=== PATIENT | male | born 1965 | race Caucasian/White ===

== ENCOUNTER 2020-10-10 13:37 | Emergency (ER) | payer OTHER ==
--- NOTE | 2020-10-10 14:54 | ED Physician Documentation ---
History of Present Illness - Stated complaint Stated Complaint: C+ FEVER - History obtained from History obtained from: Patient - History of Present Illness Timing: How many days ago (3) Pain level max: 0 Pain level now: 0 - Additonal information Additional information: Patient is a 55-year-old male who has not had his Covid vaccination. He states he started feeling ill 4 to 5 days ago. He states that he has a mild cough. Has had some mild body aches and a T-max of 101. Had a positive Covid test. He called the nurse advice line who told him to come here. Patient states he is diabetic and does have a history of hypertension as well. Has been taking Tylenol for fevers at home. Review of Systems Ten Systems: 10 systems reviewed and negative Constitutional: reports: Fever, Chills Ears: denies: Ear pain Nose: denies: Rhinorrhea / runny nose, Congestion Throat: denies: Sore throat Cardiac: denies: Chest pain / pressure, Palpitations Respiratory: reports: Cough (Minimal, dry). denies: Wheezing GI: denies: Nausea, Vomiting Skin: denies: Rash Musculoskeletal: denies: Neck pain, Back pain Neurologic: denies: Headache PD PAST MEDICAL HISTORY - Past Medical History Past Medical History: Yes Cardiovascular: Hypertension Endocrine/Autoimmune: Type 2 diabetes - Present Medications Home Medications: Ambulatory Orders Medication Instructions Recorded Confirmed Empagliflozin [Jardiance] 10 mg PO DAILY 10/10/20 10/10/20 Lisinopril/Hydrochlorothiazide 1 each PO DAILY 10/10/20 10/10/20 [Zestoretic 20-12.5 mg Tablet] Pioglitazone HCl [Actos] 30 mg PO DAILY 10/10/20 10/10/20 Sitagliptin Phosphate [Januvia] 25 mg PO DAILY 10/10/20 10/10/20 - Allergies Allergies/Adverse Reactions: Allergies Allergy/AdvReac Type Severity Reaction Status Date / Time Penicillins Allergy Hives Verified 10/10/20 15:01 - Living Situation Living Arrangement: reports: At home - Social History Does the pt smoke?: No Does the pt have substance abuse?: No PD ED PE NORMAL - Vitals Vital signs reviewed: Yes - General General: Alert and oriented X 3, No acute distress, Well developed/nourished - HEENT HEENT: PERRL, Ears normal, Moist mucous membranes, Pharynx benign - Neck Neck: Supple, no meningeal sign - Cardiac Cardiac: RRR, Strong equal pulses - Respiratory Respiratory: No respiratory distress, Clear bilaterally - Abdomen Abdomen: Soft, Non tender, Non distended - Derm Derm: Warm and dry - Extremities Extremities: No edema, No calf tenderness / cord - Neuro Neuro: Alert and oriented X 3 - Psych Psych: Normal mood, Normal affect Results - Vitals Vitals: Vital Signs - 24 hr 10/10/20 14:53 Temperature 37.7 C Heart Rate 100 Respiratory 20 Rate Blood Pressure 126/103 H O2 Saturation 98 Oxygen O2 Source Room air PD MEDICAL DECISION MAKING - ED course Complexity details: considered differential, d/w patient ED course: Patient is well-appearing, nontoxic. Afebrile. No hypoxia. No respiratory distress. Discussed the risks and benefits of bamlanivimab and Etesevimab treatment. Patient declines this at this time. Informed the patient that this treatment is approved within 10 days of symptom onset. We will continue supportive care and he will self quarantine at home. Patient also encouraged to have his vaccination once this illness clears. Patient counseled regarding signs and symptoms for which I believe and urgent re-evaluation would be necessary. Patient with good understanding of and agreement to plan and is comfortable going home at this time This document was made in part using voice recognition software. While efforts are made to proofread this document, sound alike and grammatical errors may occur. Departure - Departure Disposition: 01 Home, Self Care Clinical Impression: COVID-19 Condition: Good Instructions: COVID-19 [facility], COVID-19 [facility] Department Statement Follow-Up: your,doctor as needed. [Other] Comments: We did discuss treatment with Bamlanivimab and Etesevimab today, you have declined this. If you change your mind, this treatment is aurhtorized within 10 days of onset of symptoms. Please quarantine yourself at home. If you notice your oxygen saturations are staying at 90 or below, you should return for evaluation as well. Discharge Date/Time: 10/10/20 15:05
[2020-10-10 15:09] VITALS: BP 126/103
== END 2020-10-10 15:05 | disposition home or self-care (01) ==
LOC: ED 13:37
DX: U07.1 COVID-19 (principal); E11.9 Type 2 diabetes mellitus without complications; Z79.84 Long term (current) use of oral hypoglycemic drugs; I10 Essential (primary) hypertension
CPT/HCPCS: 99281; 99283

== ENCOUNTER 2020-10-13 06:32 | Inpatient (IN) | payer OTHER ==
--- NOTE | 2020-10-13 07:41 | ED Physician Documentation ---
PD HPI URI - Stated complaint Stated Complaint: C+ FEVER, SOA - Chief complaint Chief Complaint: Resp - History obtained from History obtained from: Patient - History of Present Illness Timing - onset: How many days ago (10) Timing duration: Days (10) Timing details: Gradual onset, Still present Associated symptoms: Fever, Chills, Nasal congestion, Dry cough, Dyspnea, NVD (nausea and diarrhea, with poor PO intake but no vomiting. Feels dehydrated.). No: Chest pain Contributing factors: Sick contact, Other (tested positive for COVID at [facility] last Sun and seen in ER after results. Offered Mab therapy but declined. No Rx given. Feeling worse the past few days since last visit.) Improves by: No: Rest Worsened by: Activity Similar symptoms before: Has not had sx before Recently seen: Emergency Dept (several days ago for this, and has worsened with nausea/diarrhea, general fatigue, feeling dehydrated.) Review of Systems Constitutional: denies: Fever, Chills Nose: reports: Congestion. denies: Rhinorrhea / runny nose Throat: reports: Sore throat Cardiac: denies: Chest pain / pressure, Palpitations, Pedal edema Respiratory: reports: Dyspnea, Cough GI: reports: Nausea (poor PO intake for few days due to nausea and bloating. But has had diarrhea, watery and brown. No noted blood.), Diarrhea. denies: Abdominal Pain, Vomiting : denies: Dysuria Neurologic: reports: Generalized weakness. denies: Altered mental status, Headache Endocrine: denies: Weight loss Immunocompromised: denies: Immunocompromised PD PAST MEDICAL HISTORY - Past Medical History Past Medical History: Yes Cardiovascular: Hypertension, High cholesterol Respiratory: None Neuro: None Endocrine/Autoimmune: Type 2 diabetes GI: Hemorrhoids : None HEENT: None Psych: None Musculoskeletal: Chronic back pain Derm: None - Past Surgical History Past Surgical History: Yes Ortho: Spine surgery - Present Medications Home Medications: Ambulatory Orders Medication Instructions Recorded Confirmed Empagliflozin [Jardiance] 10 mg PO DAILY 10/10/20 10/13/20 Lisinopril/Hydrochlorothiazide 1 each PO DAILY 10/10/20 10/13/20 [Zestoretic 20-12.5 mg Tablet] Pioglitazone HCl [Actos] 30 mg PO DAILY 10/10/20 10/13/20 Sitagliptin Phosphate [Januvia] 25 mg PO DAILY 10/10/20 10/13/20 - Allergies Allergies/Adverse Reactions: Allergies Allergy/AdvReac Type Severity Reaction Status Date / Time Penicillins Allergy Hives Verified 10/13/20 07:24 - Social History Does the pt smoke?: No Smoking Status: Former smoker Does the pt drink ETOH?: Yes Does the pt have substance abuse?: No - Immunizations Immunizations are current?: Yes PD ED PE NORMAL - Vitals Vital signs reviewed: Yes - General General: Alert and oriented X 3, Well developed/nourished - HEENT HEENT: Moist mucous membranes, Pharynx benign - Neck Neck: Supple, no meningeal sign, No adenopathy, No JVD - Cardiac Cardiac: RRR, No murmur - Respiratory Respiratory: No respiratory distress, Other (mild coarse sounds bilaterally) - Abdomen Abdomen: Soft, Non tender - Back Back: No CVA TTP - Derm Derm: Normal color, Warm and dry - Extremities Extremities: No tenderness to palpate, Normal ROM s pain - Neuro Neuro: Alert and oriented X 3, No motor deficit, Normal speech Results - Vitals Vitals: Vital Signs - 24 hr 10/13/20 10/13/20 10/13/20 07:25 07:34 08:56 Temperature 37.8 C Heart Rate 95 99 75 Respiratory 22 22 22 Rate Blood Pressure 135/94 H 146/91 H O2 Saturation 93 94 10/13/20 10/13/20 10/13/20 09:30 10:07 10:42 Temperature Heart Rate 87 95 Respiratory 12 21 Rate Blood Pressure 151/81 H 116/98 H O2 Saturation 92 89 L 86 L Oxygen O2 Source Room air - Labs Labs: Laboratory Tests 10/13/20 10/13/20 10/13/20 09:05 09:05 09:05 WBC 5.9 RBC 5.67 Hgb 16.7 Hct 48.8 MCV 86.1 MCH 29.5 MCHC 34.2 RDW 12.9 Plt Count 115 L MPV 12.0 H Neut # (Auto) 4.1 Lymph # (Auto) 1.2 L [place] # (Auto) 0.4 Eos # (Auto) 0.1 Baso # (Auto) 0.0 Absolute Nucleated RBC 0.00 Nucleated RBC % 0.0 Sodium 129 L Potassium 3.8 Chloride 92 L Carbon Dioxide 27 Anion Gap 10.0 BUN 19 Creatinine 0.9 Estimated GFR (MDRD) 88 L Glucose 189 H Lactic Acid 1.5 Calcium 8.8 Magnesium 2.2 Total Bilirubin 1.3 H AST 68 H ALT 50 Alkaline Phosphatase 40 L Total Protein 7.5 Albumin 4.0 Globulin 3.5 Albumin/Globulin Ratio 1.1 Lipase 29 Serum Ketones NEGATIVE - Rads (name of study) chest xray Radiology: Prelim report reviewed (interstitial infiltrates c/w viral pneumonia), See rad report PD MEDICAL DECISION MAKING - ED course Complexity details: reviewed results (Chest x-ray shows interstitial infiltrates consistent with viral pneumonia. His oxygenation is low between 86 and 92% over time while here in the ER. He is placed on nasal cannula.), re-evaluated patient (He states he is feeling less nauseous and has an improved general wellness with IV fluids and antiemetic. However he still feels short of breath and oxygenation is ranging between 86 and 92% on room air.), considered differential (He tested positive for Covid and has had increasing cough and trouble breathing but also nausea, poor intake, diarrhea and general fatigue. He does feel dehydrated.), d/w patient, d/w informatics consultant (Hospitalist) Departure - Departure Disposition: 66 [facility] DC/Xfer Clinical Impression: Pneumonia due to COVID-19 virus, Diabetes, Dehydration, Hyponatremia, Hypoxia Condition: Stable Record reviewed to determine appropriate education?: Yes Discharge Date/Time: 10/13/20 12:20
[2020-10-13] MEDS ORDERED: SODIUM CHLORIDE 0.9% 1,000 ML IV STA (08:17)
[2020-10-13] MEDS ORDERED: ALBUTEROL 1 PUFF INH STA (08:17)
[2020-10-13] MEDS ORDERED: KETOROLAC 15 MG/ML VIAL IVP STA (08:18)
[2020-10-13] MEDS ORDERED: DIPHENOX/ATROPINE 2.5/0.025 MG TABLET PO STA (08:18)
[2020-10-13] MEDS ORDERED: ONDANSETRON 4 MG/2 ML VIAL IVP STA (08:18)
--- NOTE | 2020-10-13 08:38 | XRAY Report ---
PROCEDURE: Chest 1 View X-Ray INDICATIONS: chest pain TECHNIQUE: One view of the chest was acquired. COMPARISON: None FINDINGS: Surgical changes and devices: None. Lungs and pleura: No pleural effusions or pneumothorax. Patchy bilateral airspace densities, possibl y representing viral pneumonia. Mediastinum: Mediastinal contours appear normal. Heart size is normal. Bones and chest wall: No suspicious bony lesions. Overlying soft tissues appear unremarkable. IMPRESSION: Findings are consistent with bilateral viral pneumonia. Reviewed by: Derrick Bowser MD on 10/13/2020 8:37 AM PDT Approved by: Derrick Bowser MD on 10/13/2020 8:37 AM PDT Station ID: [id number]
[2020-10-13 09:27] LABS: BASOPHILS % (AUTO) 0.2 %; EOSINOPHILS # (AUTO) 0.1 10^3/uL (0.0-0.7); EOSINOPHILS % (AUTO) 2.2 %; HCT - HEMATOCRIT 48.8 % (42.0-52.0); HGB - HEMOGLOBIN 16.7 g/dL (14.0-18.0); LYMPHOCYTES # (AUTO) 1.2 10^3/uL (1.5-3.5); LYMPHOCYTES % (AUTO) 19.8 %; MEAN CORPUSCULAR HEMOGLOBIN 29.5 pg (27.0-31.0); MEAN CORPUSCULAR HGB CONC 34.2 g/dL (32.0-36.0); MEAN CORPUSCULAR VOLUME 86.1 fL (80.0-94.0); MONOCYTES # (AUTO) 0.4 10^3/uL (0.0-1.0); MONOCYTES % (AUTO) 7.4 %; NEUTROPHILS # (AUTO) 4.1 10^3/uL (1.5-6.6); NEUTROPHILS % (AUTO) 69.4 %; PLT - PLATELET COUNT 115 10^3/uL (130-450); RED BLOOD COUNT 5.67 10^6/uL (4.70-6.10); RED CELL DISTRIBUTION WIDTH 12.9 % (12.0-15.0); WHITE BLOOD COUNT 5.9 x10^3/uL (4.8-10.8)
[2020-10-13 09:35] LABS: ALBUMIN/GLOBULIN RATIO 1.1 (1.0-2.2); ALKALINE PHOSPHATASE 40 IU/L (42-121); ALT ALANINE AMINOTRANSFERASE 50 IU/L (10-60); AST ASPARTATE AMINOTRANSFERASE 68 IU/L (10-42); BILIRUBIN,TOTAL 1.3 mg/dL (0.2-1.0); BUN - BLOOD UREA NITROGEN 19 mg/dL (6-20); CALCIUM 8.8 mg/dL (8.5-10.3); CARBON DIOXIDE - CO2 27 mmol/L (21-32); CHLORIDE 92 mmol/L (101-111); CREATININE 0.9 mg/dL (0.6-1.2); GFR - MDRD 88 (>89); GLUCOSE 189 mg/dL (70-100); LIPASE 29 U/L (22-51); MAGNESIUM 2.2 mg/dL (1.7-2.8); POTASSIUM 3.8 mmol/L (3.5-5.0); SODIUM 129 mmol/L (135-145); TOTAL PROTEIN 7.5 g/dL (6.7-8.2)
[2020-10-13 09:41] LABS: KETONES, SERUM (ACETEST) NEGATIVE (NEGATIVE)
[2020-10-13] MEDS ORDERED: ONDANSETRON ODT 4 MG TABLET TL PRN (10:46)
[2020-10-13] MEDS ORDERED: ACETAMINOPHEN 325 MG TABLET PO PRN (10:46)
[2020-10-13] MEDS ORDERED: oxyCODONE 5 MG TABLET PO PRN (10:46)
[2020-10-13] MEDS ORDERED: NACL IVP SCH (11:45)
[2020-10-13] MEDS ORDERED: [UNRECOGNIZED DRUG - OTHER] IVP SCH (11:45)
[2020-10-13] MEDS ORDERED: DEXTROSE IVP SCH (11:45)
[2020-10-13 12:00] LABS: CORONAVIRUS 229E-RESP PCR NOT DETECTED; CORONAVIRUS HKU1-RESP PCR NOT DETECTED; CORONAVIRUS NL63-RESP PCR NOT DETECTED; CORONAVIRUS OC43-RESP PCR NOT DETECTED
[2020-10-13 12:06] LABS: B. PARAPERTUSSIS- RESP PCR PAN NOT DETECTED; B. PERTUSSIS- RESP PCR PANEL NOT DETECTED; C. PNEUMONIAE- RESP PCR PANEL NOT DETECTED; HUMAN METAPNEUMOVIRUS NOT DETECTED; INFLUENZA A- RESP PCR PANEL NOT DETECTED; INFLUENZA B - RESP PCR PANEL NOT DETECTED; M. PNEUMONIAE- RESP PCR PANEL NOT DETECTED; PARAINFLUENZA VIRUS 1 NOT DETECTED; PARAINFLUENZA VIRUS 2 NOT DETECTED; PARAINFLUENZA VIRUS 3 NOT DETECTED; PARAINFLUENZA VIRUS 4 NOT DETECTED; RHINOVIRUS/ENTEROVIRUS NOT DETECTED; RSV- RESP PCR PANEL NOT DETECTED; SARS-CoV-2 -RESP PCR PANEL DETECTED
[2020-10-13] MEDS ORDERED: REMDESIVIR 100MG VIAL 200 MG in SODIUM CHLORIDE 0.9% 250 ML IV ONE (14:00)
[2020-10-13] MEDS: DEXAMETHASONE 4 MG/ML VIAL IVP SCH (14:59)
[2020-10-13] MEDS: ENOXAPARIN 40 MG/0.4 ML SYRINGE SUBQ SCH (15:00)
[2020-10-13] MEDS: INSULIN ASPART 300 UNIT/3 ML PEN SUBQ SCH ×3 (15:09→21:50)
--- NOTE | 2020-10-13 15:11 | HISTORY & PHYSICAL EXAMINATION ---
Chief Complaint - Chief Complaint Chief Complaint: Cough, shortness of breath History of Present Illness - Admitted From Admitted From:: home - History Obtained From History obtained from: patient - History of Present Illness HPI Comment/Other: Patient began feeling ill ~8-10 days ago, decided to go to [facility] to get tested for COVID on Sunday after going into work on Sunday. Results were positive for COVID-19. He is not aware of any sick contacts. Patient began resting at home but decided to come to the ED when dyspnea became more severe. He has been experiencing diarrhea, chills, weakness, coughing, dyspnea, forgetfulness, and body aches. He lives alone and was concerned that he would not be able to care for himself, especially if his symptoms progressed. He has not received the COVID vaccine. He was initially offered MAB treatment upon first going to the ED (where he again tested positive for COVID-19), but declined. He no longer qualifies for MAB therapy, but has agreed to start standard treatment of dexamethasone and Remdesivir. When asked whether he would agree to intubation in the event of acute respiratory failure, the patient stated that he "has heard bad things about it" and was uncertain of his personal wishes in such an event. It was relayed to the patient that unless he clearly stated that he did not want such an intervention, that he would be intubated in the event of respiratory failure and emergency. Encouraged patient that he is welcome to revisit this topic with us at any point in the future if he has questions or if he changes his mind. Reiterated that he will be a full code at this time, to which he expressed understanding. History - Past Medical History Cardiovascular: reports: Hypertension, High cholesterol. denies: Peripheral Vascular Disease, Deep vein thrombosis, Pulmonary embolism, [place], Atrial flutter, Atrial fibrillation, Murmur, Arrhythmia, Valve disorder Respiratory: reports: None. denies: COPD, Cystic fibrosis, Emphysema, Sleep apnea Neuro: denies: Alzhiemer's, Dementia, Cerebral palsy, CVA, Peripheral neuropathy (denies) Endocrine/Autoimmune: reports: Type 2 diabetes. denies: Type 1 diabetes, HyPERthyroidism, Systemic lupus erythematosus GI: reports: Hemorrhoids. denies: GERD, Esophageal varices, GI bleed, Ulcers, C.difficile, Chronic diarrhea, Chronic constipation, Pancreatitis, Hepatitis, Cirrhosis, Ulcerative colitis, Crohn's disease : reports: None, Nocturia (once or twice depending on fluids and glucose), Other (decreased stream). denies: Dialysis, Retention, Chronic bladder infection, Indwelling catheter HEENT: reports: None, Chronic vision loss (wears glasses). denies: Chronic sinusitis, Macular degeneration, Chronic hearing loss Psych: reports: None. denies: Depression, Bipolar disorder, Schizophrenia, ADD/ADHD, Post traumatic stress disorder, Claustrophobia, Obsessive compulsive disorder, Eating disorder Musculoskeletal: reports: Chronic back pain. denies: Fibromyalgia, Rheumatoid arthritis, Osteoporosis, Paraplegia, Quadriplegia, Hemiplegia, Osteopenia Derm: reports: None. denies: Other drug resistant infections, Herpes zoster, Psoriasis, Rosacea MRSA Hx?: No - Past Surgical History Ortho: reports: Spine surgery - Family & Social History Family History: Mother: Alive and Well, Father: (dad, 71 heart disease), Sister: Alive and Well, Brother: Alive and Well Family History Comment/Other: estranged from sister, brother also with HTN, DM2. Estranged mother age 76 but estranged. 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 - Substance History Use: Uses substance without health or social issues: NONE Abuse: Recurrent use of substance despite neg consequences: NONE Dependence: Experiences withdrawal or developed tolerances: NONE - POLST Patient has POLST: No POLST Status: Full Code Meds/Allgy - Home Medications Home Medications: Ambulatory Orders Medication Instructions Recorded Confirmed Atorvastatin [Lipitor] 20 mg PO QPM 10/13/20 10/13/20 Empagliflozin [Jardiance] 25 mg PO DAILY 10/13/20 10/13/20 Pioglitazone [Actos] 15 mg PO DAILY 10/13/20 10/13/20 Sitagliptin Phos/Metformin HCl 1 cap PO BID 10/13/20 10/13/20 [Janumet Xr 50-1,000 mg Tablet] hydroCHLOROthiazide [Hydrodiuril] 12.5 mg PO DAILY 10/13/20 10/13/20 lisinopriL [Lisinopril] 40 mg PO DAILY 10/13/20 10/13/20 - Allergies Allergies/Adverse Reactions: Allergies Allergy/AdvReac Type Severity Reaction Status Date / Time Penicillins Allergy Hives Verified 10/13/20 07:24 Review of Systems - Constitutional Constitutional: reports: Fatigue, Fever, Chills, Malaise, Weakness, Poor appetite. denies: Weight gain, Weight loss - Eyes Eyes: reports: Vision loss, Corrective lenses. denies: Pain, Irritation, Amaurosis, Blurred vision, Spots in vision, Field loss, Dipolpia - Ears, Nose & Throat Ears, Nose & Throat: denies: Ear pain, Hearing loss, Hearing aids, Tinnitus, Nosebleeds, Nasal obstruction, Nasal congestion, Postnasal drainage, Dentures, Sore throat, Hoarseness, Mouth lesions, Bleeding gums, Dental decay, Dental pain - Cardiovascular Cariovascular: reports: Edema. denies: Irregular heart rate, Palpitations, Chest pain, Syncope - Respiratory Respiratory: reports: Cough, Sputum production, Wheezing, SOB at rest, SOB with exertion, Pleuritic pain. denies: Hemoptysis, Orthopnea, Stridor - Gastrointestinal Gastrointestinal: reports: Diarrhea, Nausea, Poor appetite. denies: Abdominal pain, Abdominal distention, Constipation, Rectal bleeding, Black stools, Bloody stools, Bile emesis, Daryl blood emesis - Genitourinary Genitourinary: reports: Frequency, Nocturia. denies: Dysuria, Incontinence, Flank pain, Urethral discharge - Musculoskeletal Musculoskeletal: reports: Back pain, Muscle aches. denies: Muscle pain, Muscle weakness, Gout - Integumentary Integumentary: denies: Pruritis, Lesions, Dryness, Acne, Pigment changes - Neurological Neurological: denies: Focal weakness, Numbness, Pre-existing deficit, Abnormal gait, Seizures, Incoordination, Slurred speech - Psychiatric Psychiatric: denies: Depression, Anxiety, Suicidal, Delusions, Hallucinations - Endocrine Endocrine: denies: Polyuria, Polydypsia, Polyphagia - Hematologic/Lymphatic Hematologic/Lymphatic: denies: Anemia, Bruising, Petechiae, Bleeding tendencies Prior Level of Functionality: Prior to hospitalization patient was completely independent Exam - Vital Signs Reviewed Vital Signs: Yes Vital Signs: Vital Signs x48h Temp Pulse Resp BP Pulse Ox 10/13/20 11:30 88 16 139/86 H 95 10/13/20 11:00 86 17 142/81 H 94 10/13/20 10:46 37.8 C 88 16 95 10/13/20 10:42 86 L 10/13/20 10:07 95 21 116/98 H 89 L 10/13/20 09:30 87 12 151/81 H 92 10/13/20 08:56 75 22 10/13/20 07:34 99 22 146/91 H 94 10/13/20 07:25 37.8 C 95 22 135/94 H 93 - Physical Exam General Appearance: positive: Alert, Mild distress (rigors and shakes when we walked into room, very cold) Eyes Bilateral: positive: Normal inspection, PERRL ENT: positive: ENT inspection nml Neck: positive: Nml inspection, Thyroid nml, No JVD, Trachea midline Respiratory: positive: Rhonchi (bilateral), Other (dyspneic with walking to bathroom and back, dry cough) Cardiovascular: positive: Regular rate & rhythm, No murmur, No gallop Peripheral Pulses: positive: 2+ Abdomen: positive: Non-tender, No organomegaly, Nml bowel sounds Back: positive: Nml inspection Skin: positive: Color nml, No rash, Warm, Dry Extremities: positive: Pedal edema (trace) Neurologic/Psychiatric: positive: Oriented x3, Mood/affect nml Conclusion/Plan - Problem List (1) Pneumonia due to COVID-19 virus Conclusion/Plan: Positive COVID-19 swab in ED. CXR showing viral pneumonia. Patient was offered MAB while in ED, but he intitially refused and is no longer a candidate to receive despite asking for it today. Instead, he was started on Remdesivir (day 1 of 5) and dexamethasone (day 1 of 10) today and understands duration and rationale for both of these. He continues to experience rigors/chills, body aches, and reports occasional difficult findings words, which he associates with this infection. Discussed with patient the importance of receiving the COVID vaccine, even since he has now been infected. (2) Acute respiratory failure with hypoxia Conclusion/Plan: Upon admission oxygen saturation was in the mid 80's on room air. He has since been satting in the 90's on 2L of oxygen via nasal cannula. He continues to experience moderate dyspnea, but does not appear to require more intensive respiratory intervention at this time. Continue with management of COVID pneumonia and monitor for any new worsening hypoxia or increased respiratory distress. (3) Diabetes Conclusion/Plan: Started on insulin regimen and accuchecks while inpatient, especially now that he is starting dexamethasone. Qualifiers: Diabetes mellitus type: type 2 Diabetes mellitus shelter insulin use: without shelter use Diabetes mellitus complication status: without complication Qualified Code(s): E11.9 - Type 2 diabetes mellitus without complications (4) Hypertension Conclusion/Plan: Given current BP readings, will hold home antihypertensives for now. Should systolic BP readings sustain >150, will consider resuming home medications at that time. - Lab Results Lab results reviewed: Yes Fish Bones: 10/13/20 09:05 10/13/20 09:05 - Diagnostic Imaging Results Diagnostic Imaging Results: positive: Final report reviewed Core Measures - Anticipated LOS I expect patient to be DC'd or transferred within 96 hours.: Yes - DVT/VTE - Prophylaxis VTE/DVT Device ordered at admit?: Yes
[2020-10-13] MEDS: LACTATED RINGERS 1,000 ML IV SCH ×2 (16:50→21:51)
[2020-10-13] MEDS: SODIUM CHLORIDE FLUSH 0.9% 10 ML SYRINGE IVP SCH (16:50)
--- NOTE | 2020-10-13 17:51 | PHARMACY PROGRESS NOTE ---
- Best Possible Medication History Admit Date and Time: 10/13/20 1046 Processed by: Pharmacy Medication History completed: Yes Patient Interview: Completed Secondary Source(s): Physician records, Pharmacy records, Insurance records (PATIENT ABLE TO CONFIRM HOME MEDICATIONS ) As the person ultimately responsible for medication therapy, providers are able to order a medication from an existing home medication list in [facility] via the "Reconcile Routine" prior to Confirmation of that medication by community support associate. Such practice is discouraged except when the physician, in their clinical judgment, deems that a medical need exists for a medication without regard to previous use.
[2020-10-14] MEDS: SODIUM CHLORIDE FLUSH 0.9% 10 ML SYRINGE IVP SCH ×3 (00:27→17:19)
[2020-10-14] MEDS: LACTATED RINGERS 1,000 ML IV SCH ×2 (02:29→13:10)
[2020-10-14 05:22] LABS: BASOPHILS % (AUTO) 0.4 %; HCT - HEMATOCRIT 51.9 % (42.0-52.0); HGB - HEMOGLOBIN 17.1 g/dL (14.0-18.0); LYMPHOCYTES # (AUTO) 1.7 10^3/uL (1.5-3.5); LYMPHOCYTES % (AUTO) 24.3 %; MEAN CORPUSCULAR HEMOGLOBIN 29.5 pg (27.0-31.0); MEAN CORPUSCULAR HGB CONC 32.9 g/dL (32.0-36.0); MEAN CORPUSCULAR VOLUME 89.6 fL (80.0-94.0); MEAN PLATELET VOLUME 11.4 fL (7.4-11.4); MONOCYTES # (AUTO) 0.5 10^3/uL (0.0-1.0); MONOCYTES % (AUTO) 7.7 %; NEUTROPHILS # (AUTO) 4.7 10^3/uL (1.5-6.6); NEUTROPHILS % (AUTO) 66.5 %; RED BLOOD COUNT 5.79 10^6/uL (4.70-6.10); RED CELL DISTRIBUTION WIDTH 13.3 % (12.0-15.0)
[2020-10-14 05:28] LABS: PLT - PLATELET COUNT 135 10^3/uL (130-450)
[2020-10-14 05:45] LABS: CALCIUM 8.7 mg/dL (8.5-10.3); CREATININE 0.8 mg/dL (0.6-1.2); POTASSIUM 4.4 mmol/L (3.5-5.0)
[2020-10-14] MEDS: DEXAMETHASONE 4 MG/ML VIAL IVP SCH (09:48)
[2020-10-14] MEDS: ENOXAPARIN 40 MG/0.4 ML SYRINGE SUBQ SCH (09:48)
[2020-10-14] MEDS: REMDESIVIR 100MG VIAL 100 MG in SODIUM CHLORIDE 0.9% 100ML 100 ML IV SCH (09:48)
[2020-10-14] MEDS: INSULIN GLARGINE 300 UNIT/3 ML PEN SUBQ SCH (09:52)
[2020-10-14 12:29] LABS: ESTIMATED AVERAGE GLUCOSE 160 mg/dL (70-100); HEMOGLOBIN A1c% 7.2 % (4.27-6.07)
[2020-10-14] MEDS: INSULIN ASPART 300 UNIT/3 ML PEN SUBQ SCH ×4 (13:00→21:33)
--- NOTE | 2020-10-14 19:09 | PROVIDER PROGRESS NOTE ---
Subjective - Prog Note Date Prog Note Date: 10/14/20 Prog Note Time: 19:06 - Subjective Pt reports feeling: Improved (Pt feeling slightly better than yesterday with less overall malaise.) Objective - Vital Signs/Intake & Output Vital Signs: Vital Signs x48h Temp Pulse Resp BP Pulse Ox 10/14/20 16:00 37.7 C 81 22 119/71 94 Intake & Output: Intake & Output 10/11/20 10/12/20 10/13/20 10/14/20 23:59 23:59 23:59 23:59 Intake Total 2356.66 3128.333 Balance [id number] 3128.333 - Objective General Appearance: positive: No acute distress, Alert Eyes Bilateral: positive: Normal inspection ENT: positive: ENT inspection nml Neck: positive: Nml inspection, No JVD, Trachea midline Respiratory: positive: Wheezes, Rhonchi (no change from yesterday) Cardiovascular: positive: Regular rate & rhythm, No murmur, No gallop Abdomen: positive: Non-tender, No organomegaly, Nml bowel sounds, No distention Back: positive: Nml inspection Skin: positive: Color nml, No rash, Warm, Dry Extremities: positive: Non-tender, Full ROM, Nml appearance Neurologic/Psychiatric: positive: Oriented x3, Mood/affect nml - Lab Results Fish Bones: 10/14/20 04:40 10/14/20 04:40 Other Labs: Lab Results x24hrs 10/14/20 10/14/20 10/14/20 Range/Units 16:20 12:24 08:09 WBC (4.8-10.8) x10^3/uL RBC (4.70-6.10) 10^6/uL Hgb (14.0-18.0) g/dL Hct (42.0-52.0) % MCV (80.0-94.0) fL MCH (27.0-31.0) pg MCHC (32.0-36.0) g/dL RDW (12.0-15.0) % Plt Count (130-450) 10^3/uL MPV (7.4-11.4) fL Neut # (Auto) (1.5-6.6) 10^3/uL Lymph # (Auto) (1.5-3.5) 10^3/uL [place] # (Auto) (0.0-1.0) 10^3/uL Eos # (Auto) (0.0-0.7) 10^3/uL Baso # (Auto) (0.0-0.1) 10^3/uL Absolute Nucleated RBC x10^3/uL Nucleated RBC % /100WBC Sodium (135-145) mmol/L Potassium (3.5-5.0) mmol/L Chloride (101-111) mmol/L Carbon Dioxide (21-32) mmol/L Anion Gap (6-13) BUN (6-20) mg/dL Creatinine (0.6-1.2) mg/dL Estimated GFR (MDRD) (>89) Glucose (70-100) mg/dL POC Whole Bld Glucose 258 H 190 H 157 H (70 - 100) mg/dL Estimat Average Glucose (70-100) mg/dL Hemoglobin A1c % (4.27-6.07) % Calcium (8.5-10.3) mg/dL Lactate Dehydrogenase (91-225) IU/L C-Reactive Protein (0-1.0) mg/dL 10/14/20 10/14/20 10/14/20 Range/Units 04:40 04:40 04:40 WBC 7.0 (4.8-10.8) x10^3/uL RBC 5.79 (4.70-6.10) 10^6/uL Hgb 17.1 (14.0-18.0) g/dL Hct 51.9 (42.0-52.0) % MCV 89.6 (80.0-94.0) fL MCH 29.5 (27.0-31.0) pg MCHC 32.9 (32.0-36.0) g/dL RDW 13.3 (12.0-15.0) % Plt Count 135 (130-450) 10^3/uL MPV 11.4 (7.4-11.4) fL Neut # (Auto) 4.7 (1.5-6.6) 10^3/uL Lymph # (Auto) 1.7 (1.5-3.5) 10^3/uL [place] # (Auto) 0.5 (0.0-1.0) 10^3/uL Eos # (Auto) 0.0 (0.0-0.7) 10^3/uL Baso # (Auto) 0.0 (0.0-0.1) 10^3/uL Absolute Nucleated RBC 0.00 x10^3/uL Nucleated RBC % 0.0 /100WBC Sodium 135 (135-145) mmol/L Potassium 4.4 (3.5-5.0) mmol/L Chloride 95 L (101-111) mmol/L Carbon Dioxide 28 (21-32) mmol/L Anion Gap 12.0 (6-13) BUN 16 (6-20) mg/dL Creatinine 0.8 (0.6-1.2) mg/dL Estimated GFR (MDRD) 101 (>89) Glucose 183 H (70-100) mg/dL POC Whole Bld Glucose (70 - 100) mg/dL Estimat Average Glucose (70-100) mg/dL Hemoglobin A1c % (4.27-6.07) % Calcium 8.7 (8.5-10.3) mg/dL Lactate Dehydrogenase 640 H (91-225) IU/L C-Reactive Protein 13.0 H (0-1.0) mg/dL 10/14/20 10/13/20 Range/Units 04:40 20:18 WBC (4.8-10.8) x10^3/uL RBC (4.70-6.10) 10^6/uL Hgb (14.0-18.0) g/dL Hct (42.0-52.0) % MCV (80.0-94.0) fL MCH (27.0-31.0) pg MCHC (32.0-36.0) g/dL RDW (12.0-15.0) % Plt Count (130-450) 10^3/uL MPV (7.4-11.4) fL Neut # (Auto) (1.5-6.6) 10^3/uL Lymph # (Auto) (1.5-3.5) 10^3/uL [place] # (Auto) (0.0-1.0) 10^3/uL Eos # (Auto) (0.0-0.7) 10^3/uL Baso # (Auto) (0.0-0.1) 10^3/uL Absolute Nucleated RBC x10^3/uL Nucleated RBC % /100WBC Sodium (135-145) mmol/L Potassium (3.5-5.0) mmol/L Chloride (101-111) mmol/L Carbon Dioxide (21-32) mmol/L Anion Gap (6-13) BUN (6-20) mg/dL Creatinine (0.6-1.2) mg/dL Estimated GFR (MDRD) (>89) Glucose (70-100) mg/dL POC Whole Bld Glucose 290 H (70 - 100) mg/dL Estimat Average Glucose 160 H (70-100) mg/dL Hemoglobin A1c % 7.2 H (4.27-6.07) % Calcium (8.5-10.3) mg/dL Lactate Dehydrogenase (91-225) IU/L C-Reactive Protein (0-1.0) mg/dL - Diagnostic Imaging Diagnostic Imaging Results: positive: Final report reviewed Assessment/Plan - Problem List (1) Pneumonia due to COVID-19 virus Impression: Conclusion/Plan: CXR showing viral pneumonia. Patient was offered MAB while in ED, but he intitially refused. He was started on Remdesivir (day 2 of 5 today) and dexamethasone (day 2 of 10) and understands duration and rationale for both of these. Rigors/chills, body aches improved since yesterday. Discussed with patient the importance of receiving the COVID vaccine, even since he has now been infected. He states he plans to get vaccinated 3 weeks following discharge from the hospital. (2) Acute respiratory failure with hypoxia Conclusion/Plan: Upon admission oxygen saturation was in the mid 80's on room air. He has since been satting in the 90's on 2L of oxygen via nasal cannula. He continues to experience moderate dyspnea off and on, and was started on high flow NC this morning. After providing education about proning, he reports feeling relief of dyspnea while in prone position today and states he even took a nap while proning for an hour. Continue with management of COVID pneumonia and monitor for any new worsening hypoxia or increased respiratory distress. (3) Diabetes Conclusion/Plan: Started on insulin regimen and accuchecks while inpatient. Serum glucose has b een quite elevated today. Will increase Lantus tonight and reassess tomorrow. 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 Should systolic BP readings sustain >150, will consider resuming home medications at that time.
[2020-10-14] MEDS ORDERED: INSULIN GLARGINE 300 UNIT/3 ML PEN SUBQ SCH (21:00)
[2020-10-14] MEDS: guaiFENesin 600 MG TABLET PO SCH (21:30)
[2020-10-15] MEDS: LACTATED RINGERS 1,000 ML IV SCH ×3 (02:02→22:38)
[2020-10-15] MEDS: SODIUM CHLORIDE FLUSH 0.9% 10 ML SYRINGE IVP SCH ×3 (02:03→19:03)
[2020-10-15 05:37] LABS: BASOPHILS % (AUTO) 0.1 %; RED CELL DISTRIBUTION WIDTH 13.2 % (12.0-15.0)
[2020-10-15 05:46] LABS: HCT - HEMATOCRIT 47.9 % (42.0-52.0); HGB - HEMOGLOBIN 16.1 g/dL (14.0-18.0); LYMPHOCYTES # (AUTO) 1.5 10^3/uL (1.5-3.5); LYMPHOCYTES % (AUTO) 15.6 %; MEAN CORPUSCULAR HEMOGLOBIN 30.3 pg (27.0-31.0); MEAN CORPUSCULAR HGB CONC 33.6 g/dL (32.0-36.0); MEAN PLATELET VOLUME 11.4 fL (7.4-11.4); MONOCYTES # (AUTO) 0.7 10^3/uL (0.0-1.0); MONOCYTES % (AUTO) 7.1 %; NEUTROPHILS # (AUTO) 7.6 10^3/uL (1.5-6.6); NEUTROPHILS % (AUTO) 76.3 %; PLT - PLATELET COUNT 169 10^3/uL (130-450); RED BLOOD COUNT 5.32 10^6/uL (4.70-6.10); WHITE BLOOD COUNT 9.9 x10^3/uL (4.8-10.8)
[2020-10-15 06:00] LABS: CALCIUM 8.7 mg/dL (8.5-10.3); CREATININE 0.7 mg/dL (0.6-1.2); CRP - C-REACTIVE PROTEIN 8.3 mg/dL (0-1.0); POTASSIUM 4.5 mmol/L (3.5-5.0)
[2020-10-15] MEDS: ENOXAPARIN 40 MG/0.4 ML SYRINGE SUBQ SCH (09:06)
[2020-10-15] MEDS: guaiFENesin 600 MG TABLET PO SCH ×2 (09:07→21:18)
[2020-10-15] MEDS: DEXAMETHASONE 4 MG/ML VIAL IVP SCH (09:07)
[2020-10-15] MEDS: SODIUM CHLORIDE FLUSH 0.9% 10 ML SYRINGE IVP PRN (09:10)
[2020-10-15] MEDS: INSULIN ASPART 300 UNIT/3 ML PEN SUBQ SCH ×4 (09:11→21:18)
[2020-10-15] MEDS: INSULIN GLARGINE 300 UNIT/3 ML PEN SUBQ SCH ×2 (09:12→21:21)
[2020-10-15] MEDS: REMDESIVIR 100MG VIAL 100 MG in SODIUM CHLORIDE 0.9% 100ML 100 ML IV SCH (10:40)
--- NOTE | 2020-10-15 11:41 | PROVIDER PROGRESS NOTE ---
Subjective - Prog Note Date Prog Note Date: 10/15/20 Prog Note Time: 11:38 - Subjective Pt reports feeling: Worse (Overnight patient states he experienced worsening respiratory distress, coughing, intercostal pain, and sputum production. He is feeling exhausted and somewhat defeated this morning.) Objective - Vital Signs/Intake & Output Vital Signs: Vital Signs x48h Temp Pulse Resp BP Pulse Ox 10/15/20 10:57 37.2 C 81 32 H 96 10/15/20 08:59 90 133/74 H 93 10/15/20 08:00 37.9 C 81 27 H 148/121 H 93 Intake & Output: Intake & Output 10/12/20 10/13/20 10/14/20 10/15/20 23:59 23:59 23:59 23:59 Intake Total 2356.667 4728.333 1863.333 Balance 2356.667 4728.333 1863.333 - Objective General Appearance: positive: Alert, Mild distress Eyes Bilateral: positive: Other (Right eye with mild irritation and increased tear production) ENT: positive: ENT inspection nml Neck: positive: Nml inspection Respiratory: positive: Wheezes, Rhonchi (slightly more rhoncorous than yesterday; very congested cough and lung doss) Cardiovascular: positive: Regular rate & rhythm, No murmur, No gallop Abdomen: positive: Non-tender, No organomegaly, Nml bowel sounds, No distention Back: positive: Nml inspection Skin: positive: Color nml, No rash, Warm, Dry Extremities: positive: Non-tender, Full ROM, Nml appearance Neurologic/Psychiatric: positive: Oriented x3, Mood/affect nml - Lab Results Fish Bones: 10/15/20 05:06 10/15/20 05:06 Other Labs: Lab Results x24hrs 10/15/20 10/15/20 10/15/20 Range/Units 11:31 08:15 05:06 WBC (4.8-10.8) x10^3/uL RBC (4.70-6.10) 10^6/uL Hgb (14.0-18.0) g/dL Hct (42.0-52.0) % MCV (80.0-94.0) fL MCH (27.0-31.0) pg MCHC (32.0-36.0) g/dL RDW (12.0-15.0) % Plt Count (130-450) 10^3/uL MPV (7.4-11.4) fL Neut # (Auto) (1.5-6.6) 10^3/uL Lymph # (Auto) (1.5-3.5) 10^3/uL [place] # (Auto) (0.0-1.0) 10^3/uL Eos # (Auto) (0.0-0.7) 10^3/uL Baso # (Auto) (0.0-0.1) 10^3/uL Absolute Nucleated RBC x10^3/uL Nucleated RBC % /100WBC Sodium (135-145) mmol/L Potassium (3.5-5.0) mmol/L Chloride (101-111) mmol/L Carbon Dioxide (21-32) mmol/L Anion Gap (6-13) BUN (6-20) mg/dL Creatinine (0.6-1.2) mg/dL Estimated GFR (MDRD) (>89) Glucose (70-100) mg/dL POC Whole Bld Glucose 260 H 170 H (70 - 100) mg/dL Estimat Average Glucose (70-100) mg/dL Hemoglobin A1c % (4.27-6.07) % Calcium (8.5-10.3) mg/dL Lactate Dehydrogenase 645 H (91-225) IU/L C-Reactive Protein (0-1.0) mg/dL 10/15/20 10/15/20 10/14/20 Range/Units 05:06 05:06 19:54 WBC 9.9 (4.8-10.8) x10^3/uL RBC 5.32 (4.70-6.10) 10^6/uL Hgb 16.1 (14.0-18.0) g/dL Hct 47.9 (42.0-52.0) % MCV 90.0 (80.0-94.0) fL MCH 30.3 (27.0-31.0) pg MCHC 33.6 (32.0-36.0) g/dL RDW 13.2 (12.0-15.0) % Plt Count 169 (130-450) 10^3/uL MPV 11.4 (7.4-11.4) fL Neut # (Auto) 7.6 H (1.5-6.6) 10^3/uL Lymph # (Auto) 1.5 (1.5-3.5) 10^3/uL [place] # (Auto) 0.7 (0.0-1.0) 10^3/uL Eos # (Auto) 0.0 (0.0-0.7) 10^3/uL Baso # (Auto) 0.0 (0.0-0.1) 10^3/uL Absolute Nucleated RBC 0.00 x10^3/uL Nucleated RBC % 0.0 /100WBC Sodium 138 (135-145) mmol/L Potassium 4.5 (3.5-5.0) mmol/L Chloride 97 L (101-111) mmol/L Carbon Dioxide 31 (21-32) mmol/L Anion Gap 10.0 (6-13) BUN 17 (6-20) mg/dL Creatinine 0.7 (0.6-1.2) mg/dL Estimated GFR (MDRD) 118 (>89) Glucose 197 H (70-100) mg/dL POC Whole Bld Glucose 279 H (70 - 100) mg/dL Estimat Average Glucose (70-100) mg/dL Hemoglobin A1c % (4.27-6.07) % Calcium 8.7 (8.5-10.3) mg/dL Lactate Dehydrogenase (91-225) IU/L C-Reactive Protein 8.3 H (0-1.0) mg/dL 10/14/20 10/14/20 10/14/20 Range/Units 16:20 12:24 04:40 WBC (4.8-10.8) x10^3/uL RBC (4.70-6.10) 10^6/uL Hgb (14.0-18.0) g/dL Hct (42.0-52.0) % MCV (80.0-94.0) fL MCH (27.0-31.0) pg MCHC (32.0-36.0) g/dL RDW (12.0-15.0) % Plt Count (130-450) 10^3/uL MPV (7.4-11.4) fL Neut # (Auto) (1.5-6.6) 10^3/uL Lymph # (Auto) (1.5-3.5) 10^3/uL [place] # (Auto) (0.0-1.0) 10^3/uL Eos # (Auto) (0.0-0.7) 10^3/uL Baso # (Auto) (0.0-0.1) 10^3/uL Absolute Nucleated RBC x10^3/uL Nucleated RBC % /100WBC Sodium (135-145) mmol/L Potassium (3.5-5.0) mmol/L Chloride (101-111) mmol/L Carbon Dioxide (21-32) mmol/L Anion Gap (6-13) BUN (6-20) mg/dL Creatinine (0.6-1.2) mg/dL Estimated GFR (MDRD) (>89) Glucose (70-100) mg/dL POC Whole Bld Glucose 258 H 190 H (70 - 100) mg/dL Estimat Average Glucose 160 H (70-100) mg/dL Hemoglobin A1c % 7.2 H (4.27-6.07) % Calcium (8.5-10.3) mg/dL Lactate Dehydrogenase (91-225) IU/L C-Reactive Protein (0-1.0) mg/dL - Diagnostic Imaging Diagnostic Imaging Results: positive: Final report reviewed (CXR reviewed) Assessment/Plan - Problem List (1) Pneumonia due to COVID-19 virus Impression: CXR showing viral pneumonia on admission. He was started on Remdesivir (day 3 of 5 today) and dexamethasone (day 3 of 10) and understands duration and rationale for both of these. Patient was feeling relief yesterday with proning, but overnight found it difficult due to increased sputum production, coughing, and increased respiratory effort. He is having intercostal pain d/t coughing. He is expectorating green, tenacious, purulent sputum. Sputum cultures ordered. Expectorants ordered yesterday and may help with the congestion. May add scheduled benzonatate to help alleviate cough. (2) Acute respiratory failure with hypoxia Conclusion/Plan: Upon admission oxygen saturation was in the mid 80's on room air. Yesterday morning he was started on high-flow oxygen, which was increased overnight. He is feeling run-down and concerned since his saturation dropped to the upper 70's overnight when he switched to nasal cannula oxygen in order to ambulate to the bathroom. We discussed that he stay on the high-flow O2 today without switching to nasal cannula. Provided him with urinal and commode. Continue with management of COVID pneumonia and monitor for any new worsening hypoxia or increased respiratory distress. Respiratory rate this morning 34 during exam. If he continues to experience tachypnea and increased oxygen demands, will consider ABG to better evaluate respiratory needs. (3) Diabetes Conclusion/Plan: Started on insulin regimen and accuchecks while inpatient. Lantus increased last night with improved serum glucose this morning. Qualifiers: Diabetes mellitus type: type 2 Diabetes mellitus skilled nursing insulin use: without skilled nursing use Diabetes mellitus complication status: without complication Qualified Code(s): E11.9 - Type 2 diabetes mellitus without complications (4) Hypertension Conclusion/Plan: Given current BP readings, will hold home antihypertensives for now. Should systolic BP readings sustain >150, will consider resuming home medications at that time.
[2020-10-15] MEDS ORDERED: MORPHINE SOL 10 MG/0.5 ML ORAL SYRINGE PO PRN (13:30)
[2020-10-15] MEDS ORDERED: BENZONATATE 100 MG CAPSULE PO PRN (13:30)
[2020-10-15] MEDS ORDERED: CARBOXYMETHYLCELLULOSE OPHTH DROPS EACHEYE PRN (13:31)
[2020-10-15] MEDS ORDERED: INSULIN ASPART 300 UNIT/3 ML PEN SUBQ SCH (17:00)
[2020-10-15] MEDS: CHOLECALCIFEROL 25 MCG TABLET PO SCH (19:00)
[2020-10-15] MEDS ORDERED: INSULIN ASPART 300 UNIT/3 ML PEN SUBQ ONE (19:06)
[2020-10-16] MEDS: SODIUM CHLORIDE FLUSH 0.9% 10 ML SYRINGE IVP SCH ×3 (03:15→17:13)
[2020-10-16 06:55] LABS: BASOPHILS % (AUTO) 0.1 %; HCT - HEMATOCRIT 45.2 % (42.0-52.0); HGB - HEMOGLOBIN 15.1 g/dL (14.0-18.0); LYMPHOCYTES # (AUTO) 1.5 10^3/uL (1.5-3.5); LYMPHOCYTES % (AUTO) 12.7 %; MEAN CORPUSCULAR HEMOGLOBIN 29.8 pg (27.0-31.0); MEAN CORPUSCULAR HGB CONC 33.4 g/dL (32.0-36.0); MEAN CORPUSCULAR VOLUME 89.3 fL (80.0-94.0); MEAN PLATELET VOLUME 11.5 fL (7.4-11.4); NEUTROPHILS # (AUTO) 9.4 10^3/uL (1.5-6.6); PLT - PLATELET COUNT 217 10^3/uL (130-450); RED BLOOD COUNT 5.06 10^6/uL (4.70-6.10); RED CELL DISTRIBUTION WIDTH 13.3 % (12.0-15.0)
[2020-10-16 07:12] LABS: SLIDE REVIEW? Indicated
[2020-10-16 07:14] LABS: CALCIUM 8.5 mg/dL (8.5-10.3); CREATININE 0.5 mg/dL (0.6-1.2); CRP - C-REACTIVE PROTEIN 8.6 mg/dL (0-1.0); POTASSIUM 3.8 mmol/L (3.5-5.0)
[2020-10-16 08:03] LABS: RBC MORPHOLOGY (MULTIPLE) 2+ ANISOCYTOSIS (NORMAL)
[2020-10-16] MEDS: INSULIN ASPART 300 UNIT/3 ML PEN SUBQ SCH ×7 (08:44→21:33)
[2020-10-16] MEDS: LACTATED RINGERS 1,000 ML IV SCH ×2 (08:44→19:30)
--- NOTE | 2020-10-16 09:14 | PROVIDER PROGRESS NOTE ---
Subjective - Prog Note Date Prog Note Date: 10/16/20 Prog Note Time: 09:12 - Subjective Pt reports feeling: No change (Patient is still feeling very run-down. He says he is fearful of "things getting worse" and is especially concerned that he could require intubation. He also states he is going "a bit stir crazy" with the lack of human interaction.) Objective - Vital Signs/Intake & Output Vital Signs: Vital Signs x48h Temp Resp BP Pulse Ox 10/16/20 08:47 28 H 121/66 89 L 10/16/20 08:00 36.9 C Intake & Output: Intake & Output 10/13/20 10/14/20 10/15/20 10/16/20 23:59 23:59 23:59 23:59 Intake Total 2356.667 4728.333 3961.667 1500 Output Total 850 725 Balance 2356.667 4728.333 3111.667 775 - Objective General Appearance: positive: Mild distress Eyes Bilateral: positive: Normal inspection ENT: positive: ENT inspection nml Neck: positive: Nml inspection Respiratory: positive: Wheezes, Rhonchi Cardiovascular: positive: Regular rate & rhythm, No murmur, No gallop Abdomen: positive: Non-tender, No organomegaly, Nml bowel sounds Skin: positive: Color nml, No rash, Warm, Dry Extremities: positive: Non-tender, Full ROM Neurologic/Psychiatric: positive: Oriented x3, Mood/affect nml - Lab Results Fish Bones: 10/16/20 06:03 10/16/20 06:03 Other Labs: Lab Results x24hrs 10/16/20 10/16/20 10/16/20 Range/Units 07:59 06:03 06:03 WBC (4.8-10.8) x10^3/uL RBC (4.70-6.10) 10^6/uL Hgb (14.0-18.0) g/dL Hct (42.0-52.0) % MCV (80.0-94.0) fL MCH (27.0-31.0) pg MCHC (32.0-36.0) g/dL RDW (12.0-15.0) % Plt Count (130-450) 10^3/uL MPV (7.4-11.4) fL Neut # (Auto) (1.5-6.6) 10^3/uL Lymph # (Auto) (1.5-3.5) 10^3/uL [place] # (Auto) (0.0-1.0) 10^3/uL Eos # (Auto) (0.0-0.7) 10^3/uL Baso # (Auto) (0.0-0.1) 10^3/uL Absolute Nucleated RBC x10^3/uL Nucleated RBC % /100WBC Manual Slide Review RBC Morph Micro Appear (NORMAL) Sodium 139 (135-145) mmol/L Potassium 3.8 (3.5-5.0) mmol/L Chloride 99 L (101-111) mmol/L Carbon Dioxide 30 (21-32) mmol/L Anion Gap 10.0 (6-13) BUN 14 (6-20) mg/dL Creatinine 0.5 L (0.6-1.2) mg/dL Estimated GFR (MDRD) 174 (>89) Glucose 121 H (70-100) mg/dL POC Whole Bld Glucose 107 H (70 - 100) mg/dL Calcium 8.5 (8.5-10.3) mg/dL Lactate Dehydrogenase 612 H (91-225) IU/L C-Reactive Protein 8.6 H (0-1.0) mg/dL 10/16/20 10/15/20 10/15/20 Range/Units 06:03 21:01 17:01 WBC 12.0 H (4.8-10.8) x10^3/uL RBC 5.06 (4.70-6.10) 10^6/uL Hgb 15.1 (14.0-18.0) g/dL Hct 45.2 (42.0-52.0) % MCV 89.3 (80.0-94.0) fL MCH 29.8 (27.0-31.0) pg MCHC 33.4 (32.0-36.0) g/dL RDW 13.3 (12.0-15.0) % Plt Count 217 (130-450) 10^3/uL MPV 11.5 H (7.4-11.4) fL Neut # (Auto) 9.4 H (1.5-6.6) 10^3/uL Lymph # (Auto) 1.5 (1.5-3.5) 10^3/uL [place] # (Auto) 1.0 (0.0-1.0) 10^3/uL Eos # (Auto) 0.0 (0.0-0.7) 10^3/uL Baso # (Auto) 0.0 (0.0-0.1) 10^3/uL Absolute Nucleated RBC 0.00 x10^3/uL Nucleated RBC % 0.0 /100WBC Manual Slide Review Indicated RBC Morph Micro Appear 2+ ANISOCYTOSIS (NORMAL) Sodium (135-145) mmol/L Potassium (3.5-5.0) mmol/L Chloride (101-111) mmol/L Carbon Dioxide (21-32) mmol/L Anion Gap (6-13) BUN (6-20) mg/dL Creatinine (0.6-1.2) mg/dL Estimated GFR (MDRD) (>89) Glucose (70-100) mg/dL POC Whole Bld Glucose 358 H 320 H (70 - 100) mg/dL Calcium (8.5-10.3) mg/dL Lactate Dehydrogenase (91-225) IU/L C-Reactive Protein (0-1.0) mg/dL 10/15/20 Range/Units 11:31 WBC (4.8-10.8) x10^3/uL RBC (4.70-6.10) 10^6/uL Hgb (14.0-18.0) g/dL Hct (42.0-52.0) % MCV (80.0-94.0) fL MCH (27.0-31.0) pg MCHC (32.0-36.0) g/dL RDW (12.0-15.0) % Plt Count (130-450) 10^3/uL MPV (7.4-11.4) fL Neut # (Auto) (1.5-6.6) 10^3/uL Lymph # (Auto) (1.5-3.5) 10^3/uL [place] # (Auto) (0.0-1.0) 10^3/uL Eos # (Auto) (0.0-0.7) 10^3/uL Baso # (Auto) (0.0-0.1) 10^3/uL Absolute Nucleated RBC x10^3/uL Nucleated RBC % /100WBC Manual Slide Review RBC Morph Micro Appear (NORMAL) Sodium (135-145) mmol/L Potassium (3.5-5.0) mmol/L Chloride (101-111) mmol/L Carbon Dioxide (21-32) mmol/L Anion Gap (6-13) BUN (6-20) mg/dL Creatinine (0.6-1.2) mg/dL Estimated GFR (MDRD) (>89) Glucose (70-100) mg/dL POC Whole Bld Glucose 260 H (70 - 100) mg/dL Calcium (8.5-10.3) mg/dL Lactate Dehydrogenase (91-225) IU/L C-Reactive Protein (0-1.0) mg/dL Assessment/Plan - Problem List (1) Pneumonia due to COVID-19 virus Impression: CXR showing viral pneumonia on admission. Today is day 4 of treatment with Remdesivir and dexamethasone. He is also on enoxaparin. He is still expectorating green, tenacious, purulent sputum. Sputum cultures collected yesterday, awaiting final report. Expectorants, Tessalon pearls ordered. Patient has not been proning due to challenges with having multiple lines. Discussed with nursing how we can facilitate independent and assisted proning on a regular basis, which will begin today. (2) Acute respiratory failure with hypoxia Conclusion/Plan: Hypoxia present on admission. He began high-flow oxygen 2 days ago and has required incremental increases in his FiO2 since that time. Today, he is satting in the low-mid 90's on 55%. He continues to feel run-down and concerned about increased O2 requirements. As discussed above, our plan today is to prioritize proning in the hopes to alleviate worsening O2 demands, and he is on board with this. Continue with management of COVID pneumonia and monitor for any new worsening hypoxia or increased respiratory distress. If he continues to experience tachypnea and increased oxygen demands, will consider ABG to better evaluate respiratory needs. (3) Diabetes Conclusion/Plan: Started on insulin regimen and accuchecks while inpatient. Lantus increased again last night with improved serum glucose this morning. (4) Hypertension Conclusion/Plan: Given current BP readings, will hold home antihypertensives for now. Should systolic BP readings sustain >150, will consider resuming home medications at that time.
[2020-10-16] MEDS: INSULIN GLARGINE 300 UNIT/3 ML PEN SUBQ SCH ×2 (09:17→21:32)
[2020-10-16] MEDS: CHOLECALCIFEROL 25 MCG TABLET PO SCH (09:18)
[2020-10-16] MEDS: guaiFENesin 600 MG TABLET PO SCH ×2 (09:18→21:31)
[2020-10-16] MEDS: DEXAMETHASONE 4 MG/ML VIAL IVP SCH (09:18)
[2020-10-16] MEDS: REMDESIVIR 100MG VIAL 100 MG in SODIUM CHLORIDE 0.9% 100ML 100 ML IV SCH (09:29)
[2020-10-16] MEDS: ENOXAPARIN 40 MG/0.4 ML SYRINGE SUBQ SCH (09:33)
[2020-10-16] MEDS: SODIUM CHLORIDE FLUSH 0.9% 10 ML SYRINGE IVP PRN (09:33)
[2020-10-16] MEDS ORDERED: LORazepam 0.5 MG TABLET PO STA (21:10)
[2020-10-16] MEDS ORDERED: ALBUTEROL NEB 2.5 MG/3 ML INH PRN (21:22)
[2020-10-16] MEDS ORDERED: IPRATROPIUM/ALBUTEROL 3 ML NEB INH PRN (22:58)
[2020-10-16 23:18] LABS: ABG PCO2 39 mmHg (34-45)
[2020-10-16 23:19] LABS: ABG BASE EXCESS 6.2 mmol/L (-2.0-3.0); ABG HCO3 29.8 mmol/L (22.0-26.0); ALLEN TEST POSITIVE
[2020-10-16 23:20] LABS: ABG OXYGEN SATURATION 84 % (94-98); ABG PO2 45 mmHg (80-100)
[2020-10-17] MEDS ORDERED: PROPOFOL 200 MG/20 ML VIAL IVP ONE (00:09)
[2020-10-17] MEDS ORDERED: MIDAZOLAM 2 MG/2 ML VIAL ONE ×2 (00:09→01:28)
[2020-10-17] MEDS ORDERED: fentaNYL 100 MCG/2 ML VIAL ONE ×2 (00:10→01:29)
[2020-10-17] MEDS ORDERED: SUCCINYLCHOLINE 200 MG/10 ML VIAL ONE (00:10)
[2020-10-17] MEDS ORDERED: ROCURONIUM 50 MG/5 ML VIAL ONE (00:10)
[2020-10-17] MEDS ORDERED: LIDOCAINE 2% ABBOJECT 100 MG/5 ML SYRINGE ONE (00:11)
[2020-10-17] MEDS ORDERED: SODIUM CHLORIDE FLUSH 0.9% 10 ML SYRINGE IVP PRN (00:23)
[2020-10-17] MEDS: PROPOFOL 500 MG/50 ML 500 MG/50 ML VIAL IV SCH ×3 (00:30→05:26)
--- NOTE | 2020-10-17 00:35 | PROVIDER PROGRESS NOTE ---
Senior Business Intelligence Analyst Note - Senior Business Intelligence Analyst Note Senior Business Intelligence Analyst Note: It was brought to my attention in the course of the night that the patient's respiratory rate was in the high 30s. This was while he was on high flow nasal cannula with an FiO2 of 55%. His oxygen saturation was in the 80s. An ABG showed a pH of 7.49 but PO2 of 44. Chest x-ray showed extensive patchy densities which was consistent with worsening Covid pneumonia Initial attempt to place patient on BiPAP was immediately unsuccessful. The patient was significantly claustrophobic. This led to a precipitous drop in his oxygen saturation into the 70s. He was placed back on high flow nasal cannula temporarily at an FiO2 of 60%. I had a conversation with the patient about the need for intubation. To which he reluctantly agreed after consideration. I contacted anesthesia for intubation.
[2020-10-17] MEDS ORDERED: SODIUM CHLORIDE FLUSH 0.9% 10 ML SYRINGE IVP SCH (01:00)
--- NOTE | 2020-10-17 01:23 | CONSULTATION NOTE ---
Consultation Report: Called for intubation and central line placement for covid positive patient in respiratory distress. Verbal consent obtained from patient as he was in severe respiratory distress with respiratory rate of 40 on high flow NC. Intubation: Patient was pre-oxygenated with 100% O2 for 10 mins prior to intubation. Highest O2 sat was 92%. Induction drugs were: 2mg Versed, 100mcg fentanyl, 80mg lidocaine, 200mg propofol and 120mg succinylcholine. Laryngoscopy was performed with a #3 Glidescope and grade 1 view obtained. Intubated with ease. Bilateral breath sounds were equal and there was positive ETCO2. Lowest Sat was 85% and quickly recovered to 92% with 100% O2. Propofol drip was started and titrated to effect. 50mg of rocuronium was given to assist with central line placement. Chest xray showed ETT 4.5cm above the alex. Central line placement: Patient was placed in a head down position and the right neck was prepped with chlorohexadine. Full sterile gown, gloves, mask and drape were utilized. The right IJ was imaged using ultrasound and was accessed with needle. Wire advanced with ease. A triple lumen central line was inserted over the wire and wire removed. All 3 ports aspirate blood and flush with ease. Line was sutured in place and biopatch applied. CXR showed tip in the SVC. After placement of central line and intubation, patient continued to deteriorate. He was coughing and triggering high pressures on the vent and his SaO2 had decreased to 85%. RT was at bedside to assist with vent settings. He had high blood pressure initially (180s/100s), so 200mcg and 4mg of versed were given in addition to propofol running at 75mcg/kg/min. His blood pressures improved (110/70s) but his oxygenation continued to decrease and peak pressures increased (50-60). Repeat chest xrays were taken and were unchanged. Hospitalist asked for additional paralytic, so 10mg vecuronium was given IV with no improvement in peak pressures or O2 sats.
[2020-10-17] MEDS ORDERED: PROPOFOL 500 MG/50 ML 500 MG/50 ML VIAL ONE (01:30)
[2020-10-17] MEDS ORDERED: VECURONIUM 10 MG VIAL ONE (01:59)
[2020-10-17] MEDS ORDERED: WATER FOR INJECTION,STERILE 10 ML MC ONE (01:59)
[2020-10-17 02:44] LABS: ABG BASE EXCESS 2.4 mmol/L (-2.0-3.0); ABG HCO3 29.7 mmol/L (22.0-26.0); ABG OXYGEN SATURATION 89 % (94-98); ABG PCO2 57 mmHg (34-45); ABG PH 7.34 (7.35-7.45); ABG PO2 61 mmHg (80-100); ABG TCO2 31.5 MMOL/L (21.0-29.0)
[2020-10-17 02:45] LABS: ABG RESPIRATORY RATE 18 b/min; ALLEN TEST POSITIVE
[2020-10-17] MEDS ORDERED: fentaNYL 2,500 MCG in SODIUM CHLORIDE 0.9% 200 ML IV SCH (03:00)
[2020-10-17] MEDS: SODIUM CHLORIDE FLUSH 0.9% 10 ML SYRINGE IVP SCH (03:36)
[2020-10-17 05:13] LABS: ABG BASE EXCESS 2.6 mmol/L (-2.0-3.0); ABG HCO3 27.9 mmol/L (22.0-26.0); ABG PCO2 45 mmHg (34-45); ABG PH 7.41 (7.35-7.45); ABG TCO2 29.3 MMOL/L (21.0-29.0); ALLEN TEST POSITIVE
[2020-10-17 05:14] LABS: ABG MODE OF VENTILATION ASSIST/CONTROL; ABG RESPIRATORY RATE 18 b/min
[2020-10-17 05:15] LABS: ABG PO2 49 mmHg (80-100)
[2020-10-17] MEDS: LACTATED RINGERS 1,000 ML IV SCH (05:26)
[2020-10-17 05:33] LABS: ABG OXYGEN SATURATION 86 % (94-98)
--- NOTE | 2020-10-17 06:18 | DISCHARGE SUMMARY ---
Discharge Summary Admit Date: 10/13/20 Discharge Date: 10/17/20 Discharging Provider: Barber Knight Condition at Discharge: Critical Discharge Disposition: 02 Transfer Acute Care Hosp Discharge [facility] Name: [facility] - DIAGNOSES Admission Diagnoses: Pneumonia due to COVID-19 virus Acute respiratory failure with hypoxia Diabetes Hypertension Discharge Diagnoses with Status of Each Condition: Pneumonia due to COVID-19 virus: Patient currently intubated and sedated. Acute respiratory failure with hypoxia: Patient currently intubated and sedated Diabetes Hypertension - HPI History of Present Illness: Patient began feeling ill ~8-10 days ago, decided to go to [email or web address] to get tested for COVID on Sunday after going into work on Sunday. Results were positive for COVID-19. He is not aware of any sick contacts. Patient began resting at home but decided to come to the ED when dyspnea became more severe. He has been experiencing diarrhea, chills, weakness, coughing, dyspnea, forgetfulness, and body aches. He lives alone and was concerned that he would not be able to care for himself, especially if his symptoms progressed. He has not received the COVID vaccine. He was initially offered MAB treatment upon first going to the ED (where he again tested positive for COVID-19), but declined. He no longer qualifies for MAB therapy, but has agreed to start standard treatment of dexamethasone and Remdesivir. When asked whether he would agree to intubation in the event of acute respiratory failure, the patient stated that he "has heard bad things about it" and was uncertain of his personal wishes in such an event. It was relayed to the patient that unless he clearly stated that he did not want such an intervention, that he would be intubated in the event of respiratory failure and emergency. Encouraged patient that he is welcome to revisit this topic with us at any point in the future if he has questions or if he changes his mind. Reiterated that he will be a full code at this time, to which he expressed understanding. Patient was initially maintained on 2 L of oxygen via nasal cannula upon admission with oxygen saturation in the 90s. Over the course of 4 days he is oxygen requirement increased to 4 L then high flow nasal cannula with an FiO2 of 40%. Yesterday 10/16/20 he was on the high flow nasal cannula with an FiO2 of 60%. Despite this, the patient's oxygen saturation was 88%. His respiratory rate was in the high 30s. ABG showed pH 7.50, PCO2 39, PO2 45, HCO3 29.8, total CO2 31.0, oxygen saturation 84%. Chest x-ray was done which showed interval worsening of bilateral patchy airspace opacities. An initial attempt was made to place the patient on BiPAP which he did not tolerate. Consequently he was intubated. After intubation the patient was maintained on AC/VC, rate of 16, PEEP 5, tidal volume 450. On the settings the patient's oxygen saturation was around 86%. Shortly after intubation his peak pressure was 37. Within an hour his peak pressure went up to 60. I attempted to switch him to AC/PC which resulted in worsening in his oxygenation so the AC/VC mode was resumed. Fentanyl drip was added to propofol drip for sedation. The patient received a one-time dose of vecuronium 10 mg. There was no appreciable improvement in the patient's oxygenation with administration of the paralytic. Chest x-ray was repeated to investigate elevated peakPressure. Chest x-ray at 1:56 AM on 10/17/2020 read as small right apical pneumothorax occupying less than 15% of the pleural space. However repeat chest x-ray 3 hours later reported no convincing pneumothorax. The patient's oxygen saturation steadily dropped to 80% while his respiratory rate steadily increased into the 30s and his heart rate into the low 100. I presented the case to input output clerk Dr. Bradshaw at [facility]. Recommendations were to decrease the tidal volume to 400, increase the PEEP to 10 and initiate vecuronium drip. Then transfer the patient. Last ABG done at 5 AM on 10/17/20 showed pH 7.41, PCO2 45, PO2 49, HCO3 27.9, oxygen saturation 86%. This was on AC/VC mode, Respiratory rate 18, FiO2 100%, tidal volume 450 and PEEP 5 The setting changes were initiated. However the patient's Oxygen saturation dropped to 78%. The patient was transferred via air To [facility] - ALLERGIES Allergies/Adverse Reactions: Allergies Allergy/AdvReac Type Severity Reaction Status Date / Time Penicillins Allergy Hives Verified 10/13/20 07:24 - MEDICATIONS Home Medications: Ambulatory Orders Medication Instructions Recorded Confirmed Atorvastatin [Lipitor] 20 mg PO QPM 10/13/20 10/13/20 Empagliflozin [Jardiance] 25 mg PO DAILY 10/13/20 10/13/20 Pioglitazone [Actos] 15 mg PO DAILY 10/13/20 10/13/20 Sitagliptin Phos/Metformin HCl 1 cap PO BID 10/13/20 10/13/20 [Janumet Xr 50-1,000 mg Tablet] hydroCHLOROthiazide [Hydrodiuril] 12.5 mg PO DAILY 10/13/20 10/13/20 lisinopriL [Lisinopril] 40 mg PO DAILY 10/13/20 10/13/20 - PHYSICAL EXAM AT DISCHARGE General Appearance: positive: Other (Sedated and intubated) Eyes Bilateral: positive: PERRL, EOMI ENT: positive: No signs of dehydration Neck: positive: No JVD, Trachea midline Respiratory: positive: Rhonchi, Other (Tachypnea) Cardiovascular: positive: Tachycardia Abdomen: positive: Non-tender, Nml bowel sounds, No distention. negative: Guarding, Rebound Back: positive: Nml inspection Skin: positive: Color nml, No rash, Warm, Dry Extremities: positive: Non-tender, Full ROM, No pedal edema Neurologic/Psychiatric: positive: Other (Sedated and intubated) - LABS Result Diagrams: 10/17/20 06:20 10/17/20 06:20 - TIME SPENT Time Spent in Discharge (Minutes): 45
--- NOTE | 2020-10-17 06:21 | Discharge Plan ---
Discharge Plan Problem Reviewed?: Yes Disposition: 02 Transfer Acute Care Hosp Condition: Critical Health Concerns: Patient was admitted on 10/13/20 with Covid pneumonia. He was started on Decadron and remdesivir. He was also maintained on supplemental oxygen via nasal cannula. Over the course of 4 days the patient's oxygen requirement steadily increased. Yesterday he was on high flow nasal cannula at an FiO2 of 60% with oxygen saturation only in the high 80s. ABG showed PaO2 of 45. As a result the patient was intubated. Despite intubation the patient's oxygen saturation has never improved beyond 88%. Presented the patient to Dr. Bradshaw and community music therapist at [facility] who was agreeable to have the patient transferred to his service. The patient will be transferred by air to [place]. No Smoking: If you smoke, Please STOP! Call for help.
[2020-10-17 06:31] LABS: BASOPHILS % (AUTO) 0.2 %; EOSINOPHILS # (AUTO) 0.2 10^3/uL (0.0-0.7); HCT - HEMATOCRIT 46.9 % (42.0-52.0); HGB - HEMOGLOBIN 15.8 g/dL (14.0-18.0); LYMPHOCYTES # (AUTO) 1.1 10^3/uL (1.5-3.5); MEAN CORPUSCULAR HEMOGLOBIN 30.3 pg (27.0-31.0); MEAN CORPUSCULAR HGB CONC 33.7 g/dL (32.0-36.0); MONOCYTES # (AUTO) 0.5 10^3/uL (0.0-1.0); MONOCYTES % (AUTO) 3.5 %; NEUTROPHILS # (AUTO) 13.1 10^3/uL (1.5-6.6); NEUTROPHILS % (AUTO) 87.1 %; NRBC ABSOLUTE COUNT (AUTO) 0.02 x10^3/uL; NUCLEATED RED BLOOD CELLS AUTO 0.1 /100WBC; PLT - PLATELET COUNT 282 10^3/uL (130-450); RED BLOOD COUNT 5.21 10^6/uL (4.70-6.10); RED CELL DISTRIBUTION WIDTH 13.5 % (12.0-15.0); WHITE BLOOD COUNT 15.1 x10^3/uL (4.8-10.8)
[2020-10-17 06:33] VITALS: BP 117/68
[2020-10-17 06:47] LABS: CALCIUM 8.4 mg/dL (8.5-10.3); CREATININE 0.9 mg/dL (0.6-1.2); CRP - C-REACTIVE PROTEIN 8.9 mg/dL (0-1.0); POTASSIUM 3.8 mmol/L (3.5-5.0)
[2020-10-17] MEDS ORDERED: VECURONIUM 100 MG in SODIUM CHLORIDE 0.9% 100ML 100 ML IV SCH (07:00)
[2020-10-17 07:11] LABS: ABG BASE EXCESS 1.3 mmol/L (-2.0-3.0); ABG HCO3 30.3 mmol/L (22.0-26.0); ABG PH 7.28 (7.35-7.45); ABG PO2 58 mmHg (80-100); ABG TCO2 32.3 MMOL/L (21.0-29.0)
[2020-10-17 07:12] LABS: ABG RESPIRATORY RATE 18 b/min; ALLEN TEST POSITIVE
[2020-10-17 07:13] LABS: ABG OXYGEN SATURATION 87 % (94-98); ABG PCO2 65 mmHg (34-45)
--- NOTE | 2020-10-17 08:00 | XRAY Report ---
PROCEDURE: Chest 1 View X-Ray INDICATIONS: increasing oxygen requirement, tachypnea TECHNIQUE: One view of the chest was acquired. COMPARISON: 10/13/2020 FINDINGS: Surgical changes and devices: None. Lungs and pleura: No pleural effusions or pneumothorax. Worsening abnormal bilateral interstitial in filtrates are seen, which are consistent with the given clinical history of, pneumonia. Mediastinum: Mediastinal contours appear normal. Heart size is normal. Bones and chest wall: No suspicious bony lesions. Age-appropriate degenerative changes are seen. O verlying soft tissues appear unremarkable. IMPRESSION: Bilateral interstitial type infiltrates are seen, which are more prominent on the current study than on the prior. These are consistent with the given clinical history of COVID pneumonia. Note: No significant discrepancy from the preliminary report. Reviewed by: Juan Ramon Dowd MD on 10/17/2020 6:59 AM BUZZ Approved by: Juan Ramon Dowd MD on 10/17/2020 6:59 AM BUZZ Station ID: [id number]
--- NOTE | 2020-10-17 08:02 | XRAY Report ---
PROCEDURE: Chest for Line Placement INDICATIONS: Intubation, central line and NGT TECHNIQUE: One view of the chest was acquired. COMPARISON: Correlation is made with the accompanying chest radiograph. FINDINGS: Surgical changes and devices: An endotracheal tube is seen, with the tip 4.5 cm above the alex. A right-sided central line is seen, with the tip overlying the inferior aspect of the superior vena cav a, approximately 3 cm above the cavoatrial junction. Lungs and pleura: No pleural effusions or pneumothorax. Stable bilateral patchy interstitial infiltr ates are seen. Mediastinum: Mediastinal contours appear normal. Heart size is normal. Bones and chest wall: No suspicious bony lesions. Overlying soft tissues appear unremarkable. IMPRESSION: The tip of endotracheal tube is seen 4.5 cm above the alex. The tip of the right-sided central line is seen overlying the inferior aspect of the superior cava. Stable COVID pneumonia. Note: No significant discrepancy from the preliminary report. Reviewed by: Juan Ramon Dowd MD on 10/17/2020 7:01 AM BUZZ Approved by: Juan Ramon Dowd MD on 10/17/2020 7:01 AM BUZZ Station ID: [id number]
--- NOTE | 2020-10-17 08:08 | XRAY Report ---
PROCEDURE: Chest 1 View X-Ray INDICATIONS: hypoxia. TECHNIQUE: One view of the chest was acquired. COMPARISON: Correlation is made with the accompanying radiographs. FINDINGS: Surgical changes and devices: Stable endotracheal tube. The tip of the right-sided central line appea rs advanced, with the tip now seen approximately 1.5 cm above the cavoatrial junction. Lungs and pleura: No pleural effusions or pneumothorax. Stable interstitial infiltrates are seen. Mediastinum: Mediastinal contours appear normal. Heart size is normal. Bones and chest wall: No suspicious bony lesions. Age-appropriate degenerative changes are seen. Overlying soft tissues appear unremarkable. IMPRESSION: Stable endotracheal tube. The tip of the right-sided central line appears advanced with the prior examination, now seen approxi mately 1.5 cm above the cavoatrial junction. Stable COVID pneumonia. Note: The preliminary report describes a right apical pneumothorax. This is not well seen on current study is not seen on the short term follow up. Reviewed by: Juan Ramon Dowd MD on 10/17/2020 7:07 AM BUZZ Approved by: Juan Ramon Dowd MD on 10/17/2020 7:07 AM BUZZ Station ID: [id number]
--- NOTE | 2020-10-17 08:09 | XRAY Report ---
PROCEDURE: Chest 1 View X-Ray INDICATIONS: hypoxia TECHNIQUE: One view of the chest was acquired. COMPARISON: Correlation is made with the accompanying radiographs. FINDINGS: Surgical changes and devices: The tip of endotracheal tube and the tip of the right-sided central crispin e are stable. Lungs and pleura: No pneumothorax. Likely small right-sided pleural effusion. Worsening bilateral in terstitial infiltrates are seen. Mediastinum: Mediastinal contours appear normal. Heart size is mildly enlarged. Bones and chest wall: No suspicious bony lesions. Age-appropriate degenerative changes are seen. Overlying soft tissues appear unremarkable. IMPRESSION: There is no pneumothorax. Worsening bilateral interstitial infiltrates are seen. Likely small right-sided pleural effusion. Stable endotracheal tube and right sided central venous line. Note: No significant discrepancy from the preliminary report. Reviewed by: Juan Ramon Dowd MD on 10/17/2020 7:08 AM BUZZ Approved by: Juan Ramon Dowd MD on 10/17/2020 7:08 AM BUZZ Station ID: [id number]
== END 2020-10-17 07:25 | disposition short-term general hospital (02) | DRG 208 ==
LOC: ED 06:32 → ICU 10:46
PROVIDERS: ADMIT Specialist; ATTEND Internal Medicine
PROC: XW033E5 Introduction of Remdesivir Anti-infective into Peripheral Vein, Percutaneous Approach, New Technology Group 5 (ICD-10-PCS; 2020-10-13)
PROC: 3E0333Z Introduction of Anti-inflammatory into Peripheral Vein, Percutaneous Approach (ICD-10-PCS; 2020-10-13)
PROC: 5A1935Z Respiratory Ventilation, Less than 24 Consecutive Hours (ICD-10-PCS; principal; 2020-10-17)
PROC: 0BH17EZ Insertion of Endotracheal Airway into Trachea, Via Natural or Artificial Opening (ICD-10-PCS; 2020-10-17)
PROC: 02HV33Z Insertion of Infusion Device into Superior Vena Cava, Percutaneous Approach (ICD-10-PCS; 2020-10-17)
DX: U07.1 COVID-19 (principal); J12.82 Pneumonia due to coronavirus disease 2019; J96.01 Acute respiratory failure with hypoxia; J13 Pneumonia due to Streptococcus pneumoniae; E11.9 Type 2 diabetes mellitus without complications; I10 Essential (primary) hypertension; E78.00 Pure hypercholesterolemia, unspecified; H54.7 Unspecified visual loss; R35.0 Frequency of micturition; R35.1 Nocturia; Z79.84 Long term (current) use of oral hypoglycemic drugs; Z79.899 Other long term (current) drug therapy; Z91.19 Patient's noncompliance with other medical treatment and regimen
CPT/HCPCS: 0202U; 36415; 36600; 71045; 80048; 80053; 82009; 82803; 83036; 83605; 83615; 83690; 83735; 85025; 86140; 87070; 87077; 87150; 87181; 87205; 94002; 94640; 94664; 96361; 96374; 99283; 99285; A9270; C9399; J0330; J1650; J1815; J3010; J7120; 94770

== ENCOUNTER 2021-12-22 11:06 | Outpatient (CLI) | payer OTHER ==
--- NOTE | 2021-12-22 16:16 | SLEEP CARE CONSULTATION ---
Information from patient questionnaire entered by Angela Ibarra. I have reviewed and concur with the information entered by Angela Ibarra. This document represents the service I personally performed and the decisions made by me, Sujey Beckford ARNP. 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, VARIES WHEN OFF Time it takes to fall asleep: VARIOUS Snores at night: Yes Number of times waking at night: MULTIPLE Reasons for waking at night: reports: Bathroom, Other (UNKNOWN REASON) Toss, Turn, or Twitch while sleeping: Yes Recalls having dreams: Yes (SOMETIMES) Usually gets out of bed at: FEED HANDLER - 2PM, VARIES WHEN OFF Feels refreshed in the morning: No Morning headache: Yes (SOMETIMES) Sleepy or fatigued during the day: Yes Ever fallen asleep while driving: No Takes day naps: No Dreams during day naps: No Prior sleep studies: Yes Year and Where: [facility] 2012, Apr 07; [facility] Type of Sleep Study: Polysomnography Additional HPI information: I had the pleasure of seeing ARMANDO JAVIER today regarding the possibility of him having a sleep disorder. His current complaints are unrefreshed sleep, snoring and frequent night awakenings. He was diagnosed in 2012 with extremely severe positional sleep apnea with a supine AHI of 99. He has a recalled Brisa device and has not been using his CPAP since 2019. Patient heard about the recall on his device and was told to not use it. He stopped using the CPAP. He had a severe infection of COVID last year and spent some time in the hospital. He has also been having issues with trying to get a new machine and supplies. He spends 1 week at home and a week away from home which has complicated getting referrals and seeing his doctor. - Parasomnia Symptoms Ever been unable to move upon waking from sleep: No Walks in sleep: No Talks in sleep: No Ever acted out dreams in sleep: No Ever felt weak in the knees when startled or emotional: No Bothered by creepy, crawly, restless sensations in legs: No Problems with memory or concentration: No CPAP Compliance Data - Data Reviewed with Patient Current pressure setting (cmH2O): 8 Compliance data discussion: Patient has a Brisa REMstart Auto System One 60 series that is on the recall. He had a severe infection with Covid and has not been using his CPAP since 2019. He originally got his machine from [employer] and then he was with [facility]. He has used both a nasal pillows mask and Wisp nasal mask. He likes them both. His last use was in 2019. He had 5.4% compliance with 3 hours 22 minutes average on days used. His pressure is set at 8 cmH2O. His AHI was 0.9. Subjective Missed days of use due to: reports: illness, other (recall) Patient concerns: reports: dry mouth, nose, throat. denies: aerophagia, mask discomfort, air blowing in eyes, mask leak noise, condensation in mask/hose, nasal congestion, epistaxis Observed to snore while using device: No Current pressure setting perceived as: comfortable On therapy, patient: reports: sleeping better, other (dependant on schedule and where he is staying, travels a lot). 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 Patient is Single and lives in [place]. Have you smoked in the past 12 months: No Cigarettes per day (20/pack): 1 Quit date: AROUND 1991 Alcohol use: Yes Alcohol amount and frequency: 1-2 A MONTH Caffeine use: Yes Caffeine amount and frequency: 1 MONSTER DAILY Family History Family history of sleep disordered breathing: Yes Family Hx Sleep Apnea: Father: Snoring, Sleep apnea - Treated, Sibling: Snoring, Sleep apnea - Treated Allergies and Home Medications Known drug allergies: Yes Drug allergies reviewed: Yes (penicillin) Home medication list reviewed: Yes Allergy and home medication list: Allergies Penicillins Allergy (Verified 10/13/20 07:24) Hives Medications: Metoprolol Lisinopril Atorvastatin Pioglitzone Jardiance Janumet Vit D3 Zinc Vit C Fish oil Osteo Bi-Flex Review of Systems Weight gain over past 5 years: 45 - has gained back Weight loss over past 5 years: 45 in hospital Cardiovascular: reports: high blood pressure Gastrointestinal: reports: heartburn (OCCASIONAL) Ear/Nose/Throat: reports: dry mouth/throat Musculoskeletal: reports: back pain Immunologic: reports: allergies to food or environment (cat dander) Physical Exam Vital signs obtained and entered by: MARIA LUISA OCHOA Blood Pressure: 144/80 (LEFT ARM ) Cuff size: regular Heart Rate: 76 O2 Saturation: 97 Height: 5 ft 11 in Weight: 269 lb Body Mass Index: 37.5 BMI Classification: Obese Neck circumference: 21 (INCHES ) Heart: regular rate and rhythm Lungs: clear bilaterally Impression and Plan 1. Suspected Obstructive Sleep Apnea-Hypopnea Syndrome, as previously diagnosed in 2013 and suggested by a history of loud and irregular snoring, observed cessation of breath while asleep, morning headache, frequent awakening during the night, unrefreshed sleep, and excessive daytime sleepiness. Patient has mainly not been using his CPAP since 2019 because it is a recalled device. He also had a severe COVID infection and was in the hospital for a long time. He has not really use the CPAP because of recovery time and his machine being on t he recall. His last sleep study was in 2012 which did show positional severe obstructive sleep apnea with a supine AHI of 99. His average AHI was 4.4. I recommend proceeding to polysomnography to confirm the diagnosis and to assess severity. I obtained agreement to proceed. The pathophysiology of obstructive sleep apnea-hypopnea syndrome was discussed with the patient and health risks of cardiovascular and cerebrovascular disease if not treated. Risks of drowsy driving discussed in detail and patient advised to avoid long distance driving and to tack puller machine at the first sign of drowsiness. Patient agreed to plan. * Schedule polysomnography * Avoid long distance driving or driving when feeling sleepy. * Avoid alcohol, sedative and muscle relaxant around bedtime. * Attempt to lose weight. * Review instructions provided by trained office staff on how to prepare for the sleep study. * Return for follow-up after sleep study completed. Counseling Topics: Spare mask, Weight loss health impact Visit Type: In Office Time Spent with Patient (minutes): 34 Provider Statement: I spent 100% of the Face to Face Visit with the patient with greater than 50% spent counseling the patient and coordination of care.
[2021-12-22 16:22] VITALS: BP 144/80
== END 2021-12-22 11:07 | disposition home or self-care (01) ==
LOC: SC 11:06
PROVIDERS: ATTEND Nurse Practitioner Family
DX: G47.33 Obstructive sleep apnea (adult) (pediatric) (principal); E11.9 Type 2 diabetes mellitus without complications; I10 Essential (primary) hypertension; Z79.899 Other long term (current) drug therapy; Z79.84 Long term (current) use of oral hypoglycemic drugs; E66.9 Obesity, unspecified; Z68.37 Body mass index [BMI] 37.0-37.9, adult; Z87.891 Personal history of nicotine dependence
CPT/HCPCS: 99203; 99212

== ENCOUNTER 2022-01-17 20:23 | Outpatient (CLI) | payer OTHER | END 2022-01-17 20:24 | disposition home or self-care (01) | LOC: SC 20:23 | PROVIDERS: ATTEND Nurse Practitioner Family | DX: G47.33 Obstructive sleep apnea (adult) (pediatric) (principal); G47.61 Periodic limb movement disorder | CPT/HCPCS: 95810 ==

== ENCOUNTER 2022-03-07 15:01 | Outpatient (CLI) | payer OTHER ==
--- NOTE | 2022-03-07 15:30 | SLEEP CARE CONSULTATION ---
Information from patient questionnaire entered by Caitlin Howell. I have reviewed and concur with the information entered by Caitlin Howell. This document represents the service I personally performed and the decisions made by me, Sujey Beckford ARNP. History of Present Illness Service Date and Time: 03/07/2022 1501 Initial [place] Sleepiness Scale score: 8 Current [place] Sleepiness Scale score: 8 (03/07/2022) Additional HPI information: ARMANDO JAVIER returns for follow up and results of the recently performed polysomnography. I explained the pathophysiology behind obstructive sleep apnea. We then spent quite a bit of time discussing different treatment options. For mild obstructive sleep apnea, surgery and oral appliance are alternatives to nasal CPAP therapy but in moderate or severe cases, nasal CPAP is the most effective and reliable treatment. Because apnea is primarily in supine position, then positional management therapy could be effective. Methods discussed such as positioning with pillows to prevent supine sleep. I reviewed the impact of weight changes on sleep apnea and strongly recommended losing weight. After some discussion, the patient opted to go with the nasal CPAP therapy. Nasal autoCPAP set at 6-10 cmH20 will be ordered with rationale explained. A manual titration study will be ordered if unable to find optimal pressure with office adjustments. I explained how CPAP machine works and what to expect when using the machine. Using CPAP every night in order to get used to it was emphasized. Patient advised to put CPAP mask on before getting into bed so as not to fall asleep without CPAP. To assist acclimation to CPAP use, it could also be used for a short time during day while reading or watching TV. The patient was instructed to call the CPAP supplier to discuss any mechanical problem that may occur. If the mask given is uncomfortable or is difficult to keep on through the night even with adjustment, contact the CPAP supplier as many will replace with another mask style if notified before 30 days. If snoring or perceives is not getting enough air or too much air from the machine, notify this office. Patient counseled not drink alcohol less than 4 hours before bedtime as it can increase snoring and apnea. Patient was cautioned about risks of drowsy driving until sleepiness symptoms resolve. Patient denies drowsy driving. Sleep Study - Results Type of Sleep Study: Polysomnography (COMPLETED 01/17/22) Prior sleep studies: Yes Year and Where: ASHLEY [facility] 2012, Apr 07; [facility] Polysomnography/Home Sleep Study results: IMPRESSION: The quality of the study is good. The patient had normal sleep efficiency. The sleep architecture was abnormal for sleep fragmentation and reduced amount of time spent in REM and slow wave sleep (N3). Respiratory monitoring showed moderate obstructive sleep apnea-hypopnea (AHI = 28.7) associated with frequent arousals, oxyhemoglobin desaturation and mild hypoxia (susanne oxygen saturation of 82%). The respiratory events occurred mainly during supine sleep (supine AHI = 91.8; non-supine = 5.43). Snore was light to loud in intensity. There was severe periodic leg movement of sleep not contributing to the sleep fragmentation. Cardiac rhythm was normal sinus rhythm without significant arrhythmia. No abnormal behavior (parasomnia) observed during the night. Allergies and Home Medications Drug allergies reviewed: Yes (penicillin) Home medication list reviewed: Yes (no changes) Review of Systems Review of systems same as previous: Yes (no changes) Physical Exam Vital signs obtained and entered by: CAITLIN Ramsey MA Blood Pressure: 128/80 (LEFT ARM) Cuff size: regular Heart Rate: 60 O2 Saturation: 95 Height: 5 ft 11 in Weight: 259 lb Body Mass Index: 36.1 BMI Classification: Obese Impression and Plan 1. Obstructive Sleep Apnea-Hypopnea Syndrome, moderate, with lowest oxygen saturation of 82%. Obviously this is the cause of the patients symptoms of unrefreshed sleep, and excessive daytime sleepiness. Positive pressure therapy could benefit hypertension and diabetes. As mentioned above, the patient will be started on nasal autoCPAP therapy with pressure set at 6-10 cmH2O. Compliance guidelines also reviewed. A copy of compliance guidelines will be given for reference at check out. Because the apnea is more severe supine, I instructed to avoid sleeping supine using pillow positioning until able to start CPAP use. 2. Periodic limb movement, severe, that did not fragment patients sleep. Periodic limb movement of sleep (PLMS) is characterized by episodes of repetitive limb movements that occur during sleep and usually involve the lower limbs. The etiology is unknown. Caffeine can aggravate PLMS and should be avoided. Sleep hygiene methods can also improve sleep as well as lifestyle changes such as regular exercise. Patient was advised that no treatment is needed at this time. If symptoms increase, then further evaluation is indicated. 3. Obesity, unspecified. Currently patients BMI is 36.1. Obesity increases the risk of apnea, CPAP pressure requirements and overall health risks especially cardiovascular and diabetes. Thus patient is advised to lose weight. * Nasal auto CPAP therapy, pressure at 6-10 cm H2O. * Attempt to lose weight. * Avoid alcohol consumption near bedtime. * Avoid supine sleep until using CPAP. * The patient is again cautioned about driving until sleepiness completely resolves. * Return one month after CPAP obtained. I will assess response to therapy and compliance at that time. Counseling Topics: Weight loss health impact Visit Type: In Office Time Spent with Patient (minutes): 23 Provider Statement: I spent 100% of the Face to Face Visit with the patient with greater than 50% spent counseling the patient and coordination of care.
[2022-03-07 15:31] VITALS: BP 128/80
== END 2022-03-07 15:02 | disposition home or self-care (01) ==
LOC: SC 15:01
PROVIDERS: ATTEND Nurse Practitioner Family
DX: G47.33 Obstructive sleep apnea (adult) (pediatric) (principal); G47.61 Periodic limb movement disorder; E66.9 Obesity, unspecified; Z68.36 Body mass index [BMI] 36.0-36.9, adult
CPT/HCPCS: 99212; 99213

== ENCOUNTER 2022-07-25 14:05 | Outpatient (CLI) | payer OTHER ==
--- NOTE | 2022-07-25 12:36 | Sleep Patient Instructions ---
Sleep Center Visit Summary - Patient Visit Information Reason for Visit: First compliance visit for CPAP therapy. - Patient Instructions Additional Instructions: You were here for follow up of CPAP therapy. You will be continued on CPAP therapy with pressure at 6-10 cmH2O. We will follow up with you in 3 months. You may contact us sooner for any questions or concerns. - Clinic Information Contact: [facility] [address] [place] [address] [email or web address] T: [phone]
[2022-07-25 14:39] VITALS: BP 124/70
--- NOTE | 2022-07-25 14:39 | SLEEP CARE CONSULTATION ---
Information from patient questionnaire entered by Caitlin Howell. I have reviewed and concur with the information entered by Caitlin Howell. This document represents the service I personally performed and the decisions made by , Sujey Beckford ARNP. History of Present Illness Service Date and Time: 07/25/2022 1405 Previous diagnosis: Moderate, Obstructive Sleep Apnea-Hypopnea Syndrome AHI: 28.7 (in 2021) Reason for follow up: first compliance Accompanied by: (=) Equipment type: CPAP (RESMED Airsense 11, s/u 02/2022) Equipment obtained from: [employer] (getting supplies) Mask style: Nasal pillows Mask brand: Resmed (Cain FX) Backup mask available: No (will keep old mask when replaced) Prior sleep studies: Yes Year and Where: [facility] Apr 07; [facility] Type of Sleep Study: Polysomnography (COMPLETED 01/17/22) HPI additional information: ARMANDO JAVIER was diagnosed to have moderate, AHI 28.7, obstructive sleep apnea-hypopnea syndrome and returned today for CPAP therapy first compliance follow-up. Sleep Study - Results Type of Sleep Study: Polysomnography (COMPLETED 01/17/22) Prior sleep studies: Yes Year and Where: ASHLEY MAURER Apr 07; [facility] CPAP Compliance Data - Data Reviewed with Patient Average duration of nightly device use: 6 HRS 10 MIN Compliance rate %: 93 (06/24/22-07/23/22; days used ) Current pressure setting (cmH2O): 6-10 Average residual AHI: 0.6 Central apnea: 0.1 Obstructive apnea: 0.4 Hypopnea: 0.1 Subjective Patient concerns: reports: mask discomfort, condensation in mask/hose (occasionally in mask). denies: aerophagia, air blowing in eyes, mask leak noise, nasal congestion, dry mouth, nose, throat, epistaxis Observed to snore while using device: No Current pressure setting perceived as: comfortable On therapy, patient: reports: sleeping better, awakening more refreshed, being more awake and alert during the day, more rested overall. denies: drowsiness while driving Initial [place] Sleepiness Scale score: 8 Current [place] Sleepiness Scale score: 8 (07/25/22) Allergies and Home Medications Known drug allergies: Yes (penicillins) Drug allergies reviewed: Yes Home medication list reviewed: Yes (stopped pioglitazone) Allergy and home medication list: Allergies Penicillins Allergy (Verified 07/24/22 09:21) Hives Review of Systems Review of systems same as previous: Yes (no changes) Physical Exam Vital signs obtained and entered by: CAITLIN Ramsey MA Blood Pressure: 124/70 (LEFT ARM) Cuff size: regular Heart Rate: 66 O2 Saturation: 94 Height: 5 ft 11 in Weight: 267 lb 12.8 oz Body Mass Index: 37.3 BMI Classification: Obese Impression and Plan 1. Obstructive Sleep Apnea-Hypopnea Syndrome, moderate, with good treatment compliance and good apnea control. On CPAP therapy, the patient has better sleep quality and is more rested overall. Patient has been using a nasal pillows mask. He states he does like the style but would like to get one that has a tubing connection on the top of the head. He would like to try the ResMed AirFit P30 I nasal pillows mask. I will write the prescription for a change in mask and it will be faxed to his DME. Patient's apnea severity and rationale for treatment to reduce apnea, improve sleep quality and reduce cardiovascular and cerebrovascular events was reviewed. I also reviewed the benefit of consistent device use of CPAP for hypertension and diabetes. 2. Obesity, unspecified. Currently patients BMI is 37.3. Obesity increases the risk of apnea, CPAP pressure requirements and overall health risks especially cardiovascular and diabetes. Thus patient is advised to lose weight. * Continue auto CPAP pressure at 6-10 cmH2O * Change to a ResMed Airfit P30i nasal pillows mask * Notify me if snoring with mask or feeling that the pressure is too much or too little * Attempt to lose weight * Call this office if any problems using CPAP * Return for follow up in 3 months, or sooner if concerns arise Counseling Topics: Spare mask, Weight loss health impact Visit Type: In Office Time Spent with Patient (minutes): 20 Provider Statement: I spent 100% of the Face to Face Visit with the patient with greater than 50% spent counseling the patient and coordination of care.
== END 2022-07-25 14:06 | disposition home or self-care (01) ==
LOC: SC 14:05
PROVIDERS: ATTEND Nurse Practitioner Family
DX: G47.33 Obstructive sleep apnea (adult) (pediatric) (principal); E66.9 Obesity, unspecified; Z68.37 Body mass index [BMI] 37.0-37.9, adult
CPT/HCPCS: 99212; 99213

== ENCOUNTER 2023-06-05 13:46 | Outpatient (CLI) | payer OTHER ==
--- NOTE | 2023-06-05 14:11 | Sleep Patient Instructions ---
Sleep Center Visit Summary - Patient Visit Information Reason for Visit: 10-month follow-up - Patient Instructions Additional Instructions: You were here for follow up of CPAP therapy. You will be continued on CPAP therapy with pressure at 6-10 cmH2O. You should follow up with sleep care in 12 months. You may contact us sooner for any questions or concerns. - Clinic Information Contact: [facility] [address] [place] [address] [email or web address] T: [phone]
[2023-06-05 14:18] VITALS: BP 127/88; O2SAT 97
--- NOTE | 2023-06-05 14:18 | SLEEP CARE CONSULTATION ---
Information from patient questionnaire entered by Caitlin Howell. I have reviewed and concur with the information entered by Caitlin Howell. This document represents the service I personally performed and the decisions made by , Sujey Beckford ARNP. History of Present Illness Service Date and Time: 06/05/2023 1346 Previous diagnosis: Moderate, Obstructive Sleep Apnea-Hypopnea Syndrome AHI: 28.7 (in 2021) Reason for follow up: other (10 MONTH F/U) Equipment type: CPAP (RESMED Airsense 11, s/u 02/2022) Equipment obtained from: [facility] (getting supplies) Mask style: Nasal pillows Mask brand: Resmed (P30i, medium cushion) Backup mask available: No Last cushion change: 1 month Prior sleep studies: Yes Year and Where: ASHLEY MAURER Apr 07; [facility] Type of Sleep Study: Polysomnography (COMPLETED 01/17/22) HPI additional information: ARMANDO JAVIER was diagnosed to have moderate, AHI 28.7, obstructive sleep apnea-hypopnea syndrome and returned today for CPAP therapy 10 month follow-up. Sleep Study - Results Type of Sleep Study: Polysomnography (COMPLETED 01/17/22) Prior sleep studies: Yes Year and Where: ASHLEY MAURER Apr 07; [facility] CPAP Compliance Data - Data Reviewed with Patient Average duration of nightly device use: 7 HRS 28 MINS Compliance rate %: 100 (07/27/22-05/27/23; 305/305 days used) Current pressure setting (cmH2O): 6-10 Average residual AHI: 1.0 Central apnea: 0.1 Obstructive apnea: 0.8 Average large leak: 0 L/min Subjective Missed days of use due to: reports: travel Patient concerns: reports: dry mouth, nose, throat. denies: aerophagia, mask discomfort, air blowing in eyes, mask leak noise, condensation in mask/hose, nasal congestion, epistaxis Observed to snore while using device: No Current pressure setting perceived as: comfortable On therapy, patient: reports: sleeping better, awakening more refreshed, being more awake and alert during the day, more rested overall. denies: drowsiness while driving Initial [place] Sleepiness Scale score: 8 Current [place] Sleepiness Scale score: 6 (06/05/23) Allergies and Home Medications Known drug allergies: Yes (penicillins) Drug allergies reviewed: Yes Home medication list reviewed: Yes (Trulicity, Metformin 750 mg; stopped Janumet ) Allergy and home medication list: Allergies Penicillins Allergy (Verified 06/01/23 13:24) Hives Review of Systems Review of systems same as previous: Yes (NO CHANGE) Physical Exam Vital signs obtained and entered by: CAITLIN Ramsey MA Blood Pressure: 127/88 (RIGHT ARM) Cuff size: regular Heart Rate: 83 O2 Saturation: 97 Height: 5 ft 11 in Weight: 254 lb 3.2 oz Weight change since last visit: 13 lb loss Body Mass Index: 35.4 BMI Classification: Obese Impression and Plan 1. Obstructive Sleep Apnea-Hypopnea Syndrome, moderate, with good treatment compliance and good apnea control. On CPAP therapy, the patient has better sleep quality and is more rested overall. Patient has significant improvement of their sleep apnea and is satisfied with current CPAP therapy. Patient denies problems with oral dryness, nasal congestion, epistaxis, skin irritation or aerophagia. Patient's apnea severity and rationale for treatment to reduce apnea, improve sleep quality and reduce cardiovascular and cerebrovascular events was reviewed. I also reviewed the benefit of consistent device use of CPAP for hypertension, diabetes. 2. Obesity, unspecified. Currently patients BMI is 35.4. He has lost weight. Obesity increases the risk of apnea, CPAP pressure requirements and overall health risks especially cardiovascular and diabetes. Thus patient is advised to continue to try to lose weight. * Continue auto CPAP pressure at 6-10 cmH2O * Update supply prescription * Notify me if snoring with mask or feeling that the pressure is too much or too little * Attempt to lose weight * Call this office if any problems using CPAP * Return for follow up in 12 months, or sooner if concerns arise Counseling Topics: Spare mask, Weight loss health impact Follow up with Sleep Care in: 1 year Visit Type: In Office Time Spent with Patient (minutes): 21 Provider Statement: I spent 100% of the Face to Face Visit with the patient with greater than 50% spent counseling the patient and coordination of care.
== END 2023-06-05 13:47 | disposition home or self-care (01) ==
LOC: SC 13:46
PROVIDERS: ATTEND Nurse Practitioner Family
DX: G47.33 Obstructive sleep apnea (adult) (pediatric) (principal); E66.9 Obesity, unspecified; Z68.35 Body mass index [BMI] 35.0-35.9, adult
CPT/HCPCS: 99212; 99213